=== PATIENT | male | born 1960 | race Hispanic/Latino ===

== ENCOUNTER 2024-08-23 09:48 | Inpatient (IN) | payer SELFPAY ==
[~2024-08-23] VITALS: Ht 170.2 cm; Wt 105.1 kg
[2024-08-23] VITALS (22 sets, daily range): BP systolic 77–124; BP diastolic 38–70; PULSE 67–115; RESP 16–30; TEMP 98.4–99.1
--- NOTE | 2024-08-23 10:10 | ERN ---
ED Note History of Present Illness Stated Complaint: URINARY RETENTION ONSET YESTER Chief Complaint: Urinary Retention Time Seen by MD: 10:01 Dictation: Patient is a 64-year-old male coming in today from local day and night clinic with complaints of urinary urgency frequency and inability to void except very small amounts onset yesterday. He denies fever chills nausea vomiting. Only primary care doctor is urgent care. He was able to void and give us a voided specimen when he got to the emergency room. We will follow up bladder scan for postvoid residual. HE STATES HE HAS HAD BODY ACHES FOR THE LAST 2-3 DAYS. ONLY PAST MEDICAL HISTORY IS HYPERTENSION AND HE TAKES ENALAPRIL 10 MG BUT HE HAS BEEN TAKING FOR A LONG TIME AND JUST GOES TO [facility] FOR REFILLS. Allergies: Coded Allergies: No Known Allergies (Unverified Allergy, Unknown, 08/23/24) Home Meds Reported Medications Enalapril Maleate (Enalapril Maleate) 10 Mg Tablet, 1 TAB PO DAILY for 30 Days, #30 TAB 0 Refills 08/23/24 Past Medical History Past Medical History: Hypertension Surgical History: None RN Note Reviewed/Agreed w/PFSH: Yes Review of System Dictation CONSTITUTIONAL: Negative except for HPI HEAD/FACE: Negative except for HPI EENT: Negative except for HPI RESPIRATORY: Negative except for HPI GASTROINTESTINAL/ABDOMINAL: Negative except for HPI GENITOURINARY: Negative except for HPI to be uterine have any our urinary urgency frequency with retention MUSCULOSKELETAL: Negative except for HPI INTEGUMENTARY: Negative except for HPI NEUROLOGICAL/PSYCH: Negative except for HPI HEMATOLOGIC/LYMPHATIC: Negative except for HPI All Systems Negative, Except as noted above. 13 point review of systems assessed and all negative except for above. No who is, lumbar number seen room Initial Vital Sign VS Vital Signs Date Time Temp Pulse Resp B/P (MAP) Pulse Ox O2 Delivery O2 Flow Rate FiO2 08/23/24 09:53 98.4 106 18 140/78 98 Room Air 0 08/23/24 13:22 21 Physical Exam Dictation Vital Signs reviewed General Appearance: Alert, oriented x 3, moderate acute distress, well developed, nourished. Head and Face: non-traumatic. Eyes: PERRL, pink conjunctivas, eyelid no trauma, anterior chamber with arcus senilis. Ears: Pinnas intact and no signs of trauma or erythema ear canals clear and no discharge TM no erythema Nose: No discharge, no bleeding. Oropharynx: Mouth normal, tongue pink, pharynx clear,no erythema, tonsils no exudates, no abscesses noted, mucous membrane moist Neck: Supple, non-tender, no thyromegaly, no masses, no JVD, no bruits Breast:Deferred Chest:No tenderness, no crepitus, no paradoxical movement, no retractions Lungs:Clear, well-ventilated, symmetric, no rales, no wheezing, no rhonchi, no stridor, good breath sounds bilaterally Heart: Regular rate, regular rhythm, no murmur, no gallops Vascular: no peripheral edema, Abdomen: Soft, positive bowel sounds, nondistended, no guarding, nontender, no rebound, no masses no hepatomegaly, no splenomegaly, no Roland's sign, no hernias. Rectal: Deferred Genital: Bladder distended two fingerbreadths above symphysis pubis. Tender to palpation Neurological: Normal speech, motor function intact, sensory function intact Musculoskeletal: Neck nontender, full range of motion, back nontender, full range of motion, Extremities: nontender, full range of motion Skin: Color pink, dry, no turgor, no rash, no lacerations, no abrasions, no contusions. Lymphatic: Deferred Results (Laboratory/Radiology) Laboratory/Radiology Laboratory Tests Test 08/23/24 10:16 08/23/24 11:10 08/23/24 13:16 08/23/24 14:31 White Blood Count 29.5 K/uL (4.8-10.8) H Red Blood Count 4.54 MIL/uL (4.50-6.20) Hemoglobin 15.2 g/dL (14.0-18.0) Hematocrit 43.2 % (42-54) Mean Corpuscular Volume 95.2 fL (79-99) Mean Corpuscular Hemoglobin 33.5 pg (27.0-33.0) H Mean Corpuscular Hemoglobin Concent 35.2 g/dL (32.0-36.0) Red Cell Distribution Width 12.7 % (11.0-15.5) Platelet Count 154 K/uL (130-400) Mean Platelet Volume 10.1 fL (7.5-10.5) Immature Granulocyte % (Auto) 1.7 % (0-1) H Neutrophils (%) (Auto) 86.4 % (40.0-77.0) H Lymphocytes (%) (Auto) 4.7 % (21.0-51.0) L Monocytes (%) (Auto) 6.7 % (3.0-13.0) Eosinophils (%) (Auto) 0.1 % (0.0-8.0) Basophils (%) (Auto) 0.4 % (0.0-5.0) Neutrophils # (Auto) 25.5 K/uL (1.8-7.7) H Lymphocytes # (Auto) 1.4 K/uL (1.0-4.8) Monocytes # (Auto) 2.0 K/uL (0.1-1.0) H Eosinophils # (Auto) 0.04 K/uL (0.00-0.70) Basophils # (Auto) 0.11 K/uL (0.00-0.20) Absolute Immature Granulocyte (auto 0.50 K/uL (0-1) Nucleated Red Blood Cells 0.0 % (0.0-0.19) White Cell Morphology Comment See comments Urine Color LIGHT-ORANGE (YELLOW) Urine Appearance CLOUDY (CLEAR) H Urine pH 5.5 (5.0-8.0) Urine Specific Brogan 1.026 (1.001-1.031) Urine Protein 100 mg/dL (NEGATIVE) H Urine Glucose (UA) NEGATIVE mg/dL (NEGATIVE) Urine Ketones 10 mg/dL (NEGATIVE) H Urine Occult Blood MODERATE (NEGATIVE) H Urine Nitrate NEGATIVE (NEGATIVE) Urine Bilirubin NEGATIVE mg/dL (NEGATIVE) Urine Urobilinogen 0.2 mg/dL (0.2-1.0) Urine Leukocyte Esterase 500 Zuleima/uL (NEGATIVE) H Urine RBC 11-25 /HPF (0-1) H Urine WBC TNTC /HPF (0-1) H Urine Squamous Epithelial Cells RARE /HPF (0-2) Urine Bacteria RARE /HPF (None Seen) Sodium Level 136 mmol/L (136-145) Potassium Level 4.1 mmol/L (3.5-5.1) Chloride Level 99 mmol/L (101-111) L Carbon Dioxide Level 27 mmol/L (21-32) Blood Urea Nitrogen 14 mg/dL (7-18) Creatinine 1.3 mg/dL (0.5-1.3) Glomerular Filtration Rate Calc 61 mL/min (>90) Random Glucose 122 mg/dL (70-105) H Hemoglobin A1c 5.1 % (4.0-6.0) Estimated Average Glucose (eAG) 100 mg/dL (70-126) Total Calcium 8.6 mg/dL (8.5-10.1) C-Reactive Protein, Quantitative 170.70 mg/L (0.5-3.0) H Procalcitonin 2.37 ng/mL (0.05-0.5) H Thyroid Stimulating Hormone (TSH) 0.74 uIU/mL (0.36-3.74) Lactic Acid Level 2.3 mmol/L (0.8-2.5) 2.6 mmol/L (0.8-2.5) H SARS-CoV-2 Antigen (Rapid) PRESUMPTIVE NEGATIVE MPARISON: None FINDINGS: ABDOMEN: Heart size is normal. Visible lung bases are clear. The liver is normal in size and smooth in contour without lesions or biliary duct dilation. Diffuse low attenuation of the liver parenchyma suggests fatty change. The spleen is normal in size without lesions. The gallbladder appears normal. The pancreas appears normal without pancreatic duct dilation. The adrenal glands appear normal. 1 cm simple right renal cyst. Left kidney appears normal. Cortical nephrograms are symmetric and normal in appearance bilaterally. No evidence for intra-abdominal free air or organized fluid collection. No retrocrural, intraabdominal, or retroperitoneal lymphadenopathy identified. No aortic aneurysmal dilation or dissection identified. PELVIS: No evidence for free air or organized pelvic fluid collection. No significant pelvic adenopathy detected. Visualized small and large bowel loops appear unremarkable. Terminal ileum appears normal. The appendix appears normal. Urinary bladder wall thickening and surrounding inflammatory fat stranding. Prostate gland transverse dimension measures up to 7.3 cm. Visible osseous structures are intact. IMPRESSION: 1. Cystitis. 2. Enlarged prostate gland. 3. Hepatic steatosis. Labs Reviewed?: Yes ED Course ED Course Orders Procedure Category Date Status Time Bladder Scan CPOE 08/23/24 Transmitted 10:05 Cbc With Differential LAB 08/23/24 Complete 10:05 Basic Metabolic Panel LAB 08/23/24 Complete 10:05 Urinalysis Profile LAB 08/23/24 Complete 10:05 Blood Cult MELISSA 08/23/24 In Process 10:36 Lactic Acid LAB 08/23/24 Complete 10:36 0.9%Nacl 1000ml (Ns PHA 08/23/24 Complete 1000ml) 11:00 Ceftriaxone 2gm Vial PHA 08/23/24 Complete (Rocephin 2gm Inj) 11:00 Chest 1vw RAD 08/23/24 Resulted 10:45 Covid19 (Sars Antigen LAB 08/23/24 Complete Rapid) 10:45 Ct Abdomen/Pelvis CT 08/23/24 Resulted W/Contrast 10:54 Iohexol (Omnipaque) PHA 08/23/24 Complete 11:04 Ketorolac PHA 08/23/24 Complete Tromethamine 30mg/Ml 11:30 0.9%Nacl 1000ml (Ns PHA 08/23/24 Complete 1000ml) 11:30 Culture Urine MELISSA 08/23/24 In Process 11:30 Edm Admit Bridge Order ADM 08/23/24 Transmitted 12:53 Vital Signs(Adult CPOE 08/23/24 Transmitted Hospitalist) 13:02 Nurse To Enter Home CPOE 08/23/24 Transmitted Medication 13:02 Admit Orders ADM 08/23/24 Transmitted 13:02 Telemetry Monitoring CPOE 08/23/24 Transmitted 13:02 Heart Healthy Diet DIET 08/23/24 Transmitted Lunch Enoxaparin Sodium 30 PHA 08/24/24 In Process Mg/0.3 Ml (Lovenox) 09:00 Famotidine 20mg Vial PHA 08/23/24 In Process (Pepcid 20mg Vial) 21:00 Acetaminophen 500mg PHA 08/23/24 In Process Tab (Tylenol 500mg T 13:30 Zosyn 3.375gm+Ns 50ml PHA 08/23/24 Complete (Zosyn 3.375gm+Ns 14:00 0.9%Nacl 50ml (Ns PHA 08/23/24 Complete 50ml) 14:00 0.9%Nacl 1000ml (Ns PHA 08/23/24 In Process 1000ml) 13:30 Procalcitonin LAB 08/23/24 Complete 13:02 Crp Quantitative LAB 08/23/24 Complete 13:02 Thyroid Stimulating LAB 08/23/24 Complete Hormone 13:02 Hemoglobin A1c LAB 08/23/24 Complete 13:02 Urology Consult CONPHYSVC 08/23/24 Transmitted 13:02 Tamsulosin Hcl PHA 08/23/24 In Process (Flomax) 13:30 Acetaminophen 500mg PHA 08/23/24 Complete Tab (Tylenol 500mg T 13:30 *Nursing CPOE 08/23/24 Transmitted Communication: 13:49 Lactic Acid (Removed) LAB 08/23/24 Complete 14:18 0.9% Nacl 500ml PHA 08/23/24 In Process Iv.Soln (Ns 500ml 15:30 Lactic Acid LAB 08/23/24 In Process 18:00 Transfer To: CPOE 08/23/24 Transmitted 17:04 Norepinephrin 4mg/Ns PHA 08/23/24 In Process 250ml (Levophed 4mg 17:30 Critcal Care Consult CONPHYSVC 08/23/24 Transmitted 17:04 Meropenem (Merrem) PHA 08/23/24 In Process 17:30 Compound Iv Misc PHA 08/23/24 In Process (Compound Iv Misc) 17:30 Current Medications Medications (Trade) Dose Ordered Sig/Cathie Route PRN Reason Start Time Stop Time Status Last Admin Dose Admin Ceftriaxone Sodium (Rocephin 2gm Inj) 2 gm ONCE ONCE IVPB 08/23/24 11:00 08/23/24 11:01 DC 08/23/24 11:08 Iohexol (Omnipaque) 75 ml STK-MED ONCE IV 08/23/24 11:04 08/23/24 11:04 DC Ketorolac Tromethamine (toRADol) 30 mg ONCE ONCE IVP 08/23/24 11:30 08/23/24 11:31 DC 08/23/24 11:45 Sodium Chloride 1,000 ml @ 0 mls/hr ONCE ONCE IV 08/23/24 11:00 08/23/24 11:01 DC 08/23/24 11:08 Sodium Chloride 3,129 ml @ 1,043 mls/hr ONCE ONCE IV 08/23/24 11:30 08/23/24 14:29 DC 08/23/24 11:43 Vital Signs Date Time Temp Pulse Resp B/P (MAP) Pulse Ox O2 Delivery O2 Flow Rate FiO2 08/23/24 17:00 98.6 67 20 88/52 100 Room Air 08/23/24 14:45 98.4 93 18 90/51 97 Room Air 08/23/24 14:22 99.1 101 20 122/62 96 Room Air* 0 21 08/23/24 13:36 102.0 08/23/24 13:22 101.1 108 20 165/76 96 Room Air* 0 21 08/23/24 09:53 98.4 106 18 140/78 98 Room Air 0 TEN 50, [place]IENT [place] [address] WBCS. WE WILL START SEPTIC WORKUP TO INCLUDE BLOOD CULTURES LACTIC ACID CHEST X-RAY WE WILL GIVE FLUIDS AND BROAD-SPECTRUM ANTIBIOTICS. ANTICIPATE ADMISSION TO THE HOSPITAL RULE OUT ETIOLOGY FOR INFECTION. , HEMODYNAMICALLY STABLE PATIENT WILL BE ADMITTED FOR ACUTE CYSTITIS WITH HEMATURIA, PROSTATE ENLARGEMENT AND LEUKOCYT SPOKE WITH , HOSPITALIST AND REVIEWED CT SCAN LABS URINE POSTVOID RESIDUAL AND INTERVENTIONS FOR SEPSIS TO INCLUDE NORMAL SALINE 30 PER KILOS IN2 G ROCEPHIN HE AGREED TO ADMIT PATIENT. Medical Decision Making MDM MDM: DIFFERENTIAL DIAGNOSIS: ACUTE URINARY RETENTION/CYSTITIS/PROSTATE ENLARGEMENT WITH RETENTION/ELECTROLYTE IMBALANCE/DEHYDRATION/APPENDICITIS/DIVERTICULITIS. RATIONALE: TESTS CONSIDERED AND ORDERED SECONDARY TO SHARED DECISION MAKING INCLUDE: LABS, AND RADIOLOGY PREVIOUS OUTSIDE RECORDS REVIEWED: OLD ER VISITS. REVIEWED RISK OF COMPLICATION AND/OR MORBIDITY OR MORTALITY OF PATIENT MANAGEMENT: MODERATE MEDICATIONS-PER MEDICATION RECONCILIATION SEE NURSE'S NOTES NEED FOR HOSPITALIZATION: PATIENT DOES MEET CRITERIA FOR HOSPITALIZATION. PATIENT WILL NEED CONTINUED FLUID RESUSCITATION MANAGEMENT OF HIS CYSTITIS AND POSSIBLE UROLOGY CONSULTATION BECAUSE OF BPH NEED FOR EMERGENCY MAJOR/MINOR SURGERY: NO THERE ARE NO SOCIAL CONCERNS WITH THIS PATIENT. PRESCRIPTION DRUG MANAGEMENT PRESCRIPTIONS WILL INCLUDE SYMPTOMATIC CARE PATIENT'S PRIOR EXTERNAL MEDICAL RECORDS FROM OTHER ER VISITS WERE REVIEWED BY ME INDICATED. PRIOR TESTING AND RESULTS FROM PREVIOUS VISITS WERE REVIEWED. PRIOR TESTS WERE TAKEN INTO ACCOUNT WITH MEDICAL DECISION MAKING AND RESOURCE UTILIZATION, INDEPENDENT HISTORIAN/HISTORIANS WERE USED TO OBTAIN COMPLETE MEDICAL HISTORY. I INDEPENDENTLY INTERPRETED THE TEST THAT WERE PERFORMED, RESULTS WERE REVIEWED BY ME AND CONSIDERED FINDINGS ON RADIOLOGY IF ORDERED. MEDICAL MANAGEMENT AND EXAMINATION INTERPRETATION DISCUSSIONS WERE HAD BY ME WITH OTHER QUALIFIED HEALTHCARE PROFESSIONALS INDICATED FOR THE PATIENT'S CARE. DX & DISP Disposition: Inpatient Decision to Admit Time: 12:34 Departure Impression: Primary Impression: Acute cystitis with hematuria Additional Impressions: Hypochloremia, Uncontrolled diabetes mellitus, BPH (benign prostatic hyperplasia), Sepsis Condition: Stable Time of Disposition: 12:34 I have reviewed the case, and I agree with, Diagnosis and Plan ATTESTATION BY PHYSICIAN I PERFORMED THE SUBSTANTIVE PORTION OF THE VISIT. I HAVE REVIEWED AND PERSONALLY MADE AND APPROVED THE MANAGEMENT PLAN THAT IS DOCUMENTED IN THE NOTE BY MYSELF FOR THE A PP. I ACKNOWLEDGED FOR RESPONSIBILITY FOR THE PATIENT'S MANAGEMENT PLAN. BUBBA HUNTER NP Aug 23, 2024 10:10 DENEEN GILLESPIE MD Aug 23, 2024 18:10
[2024-08-23 10:30] LABS: BASOPHILS # (AUTO) 0.11 K/uL (0.00-0.20); BASOPHILS % (AUTO) 0.4 % (0.0-5.0); EOSINOPHILS # (AUTO) 0.04 K/uL (0.00-0.70); EOSINOPHILS % (AUTO) 0.1 % (0.0-8.0); HEMATOCRIT 43.2 % (42-54); LYMPHOCYTES # (AUTO) 1.4 K/uL (1.0-4.8); LYMPHOCYTES % (AUTO) 4.7 % (21.0-51.0); MEAN CORPUSCULAR HEMOGLOBIN 33.5 pg (27.0-33.0); MEAN CORPUSCULAR HGB CONC 35.2 g/dL (32.0-36.0); MEAN CORPUSCULAR VOLUME 95.2 fL (79-99); MONOCYTES % (AUTO) 6.7 % (3.0-13.0); NEUTROPHILS # (AUTO) 25.5 K/uL (1.8-7.7); NEUTROPHILS % (AUTO) 86.4 % (40.0-77.0); PLATELET COUNT (AUTO) 154 K/uL (130-400); RED BLOOD CELL COUNT(AUTO) 4.54 MIL/uL (4.50-6.20); RED CELL DISTRIBUTION WIDTH 12.7 % (11.0-15.5); WHITE BLOOD COUNT (AUTO) 29.5 K/uL (4.8-10.8)
[2024-08-23 10:40] LABS: CREATININE 1.3 mg/dL (0.5-1.3); POTASSIUM 4.1 mmol/L (3.5-5.1)
[2024-08-23 11:01] LABS: APPEARANCE,URINE CLOUDY (CLEAR); BILIRUBIN,URINE NEGATIVE (NEGATIVE); COLOR,URINE LIGHT-ORANGE (YELLOW); GLUCOSE, URINE (UA) NEGATIVE (NEGATIVE); KETONES,URINE 10 mg/dL (NEGATIVE); LEUKOCYTE ESTERASE ,URINE 500 Leu/uL (NEGATIVE); NITRATE,URINE NEGATIVE (NEGATIVE); OCCULT BLOOD,URINE MODERATE (NEGATIVE); PH,URINE 5.5 (5.0-8.0); PROTEIN,URINE 100 mg/dL (NEGATIVE); UROBILINOGEN,URINE 0.2 mg/dL (0.2-1.0)
[2024-08-23] MEDS ORDERED: IOHEXOL-350 75 ML VIAL IV ONE (11:04)
[2024-08-23] MEDS: CEFTRIAXONE 2GM VIAL IVPB ONE (11:08)
[2024-08-23] MEDS: 0.9%NACL 1000ML 1,000 ML IV ONE (11:08)
[2024-08-23 11:30] LABS: ADD UA MICROSCOPIC YES
--- NOTE | 2024-08-23 11:32 | HMCIMG ---
CT ABDOMEN WITH CONTRAST. CT PELVIS WITH CONTRAST INDICATION: Suprapubic and left abdominal tenderness; urinary retention. TECHNIQUE: Routine transaxial images using 5 mm slice thickness were obtained after the intravenous infusion of 75 mL of Omnipaque 350 without adverse effects. Oral contrast was not administered. Rectal contrast was not administered. Coronal and sagittal reformatted images acquired for interpretation. CT was performed with one or more of the following dose reduction techniques: Automated exposure control, adjustment of the mA and/or kV according to patient size, or use of iterative reconstruction technique. COMPARISON: None FINDINGS: ABDOMEN: Heart size is normal. Visible lung bases are clear. The liver is normal in size and smooth in contour without lesions or biliary duct dilation. Diffuse low attenuation of the liver parenchyma suggests fatty change. The spleen is normal in size without lesions. The gallbladder appears normal. The pancreas appears normal without pancreatic duct dilation. The adrenal glands appear normal. 1 cm simple right renal cyst. Left kidney appears normal. Cortical nephrograms are symmetric and normal in appearance bilaterally. No evidence for intra-abdominal free air or organized fluid collection. No retrocrural, intraabdominal, or retroperitoneal lymphadenopathy identified. No aortic aneurysmal dilation or dissection identified. PELVIS: No evidence for free air or organized pelvic fluid collection. No significant pelvic adenopathy detected. Visualized small and large bowel loops appear unremarkable. Terminal ileum appears normal. The appendix appears normal. Urinary bladder wall thickening and surrounding inflammatory fat stranding. Prostate gland transverse dimension measures up to 7.3 cm. Visible osseous structures are intact. IMPRESSION: 1. Cystitis. 2. Enlarged prostate gland. 3. Hepatic steatosis.
[2024-08-23 11:33] LABS: BACTERIA,URINE RARE /HPF (None Seen); MUCUS,URINE FEW LPF (None Seen); SQUAMOUS EPITHELIAL CELL,UR RARE /HPF (0-2); WBC,URINE TNTC /HPF (0-1)
[2024-08-23] MEDS: 0.9%NACL 1000ML 3,129 ML IV ONE (11:43)
[2024-08-23] MEDS: ketOROlac 30MG VIAL (30MG/ML) IVP ONE (11:45)
--- NOTE | 2024-08-23 13:02 | NUR ---
DR ARMENDARIZ HOSPITALIST AT BEDSIDE
--- NOTE | 2024-08-23 13:09 | HMCIMG ---
PORTABLE CHEST RADIOGRAPH INDICATION: SOB/COUGH COMPARISON: None FINDINGS: Heart size is normal. The pulmonary vascularity and bernard appear normal. No abnormal pulmonary parenchymal opacity or consolidation identified. No significant pleural effusion noted. No pneumothorax detected. IMPRESSION: No radiographic evidence for any acute cardiopulmonary process.
[2024-08-23] MEDS: tamSULOsin HCL 0.4 MG CAP.ER.24H PO SCH (13:35)
[2024-08-23] MEDS: 0.9%NACL 1000ML 1,000 ML IV SCH (13:35)
[2024-08-23] MEDS: ZOSYN 3.375GM +NS 50ML IVPB SCH (13:36)
[2024-08-23] MEDS: acetaMINOPHEN 500 MG TABLET PO ONE (13:36)
[2024-08-23 13:38] LABS: HEMOGLOBIN A1C 5.1 % (4.0-6.0)
--- NOTE | 2024-08-23 13:49 | HP ---
[facility] HISTORY AND PHYSICAL Date of Service: Aug 23, 2024 Time of Service: 13:49 HISTORY OF PRESENT ILLNESS: DATE OF SERVICE: 08/23/2024 This is a 64-year-old male with past medical history of hypertension who presented to the hospital secondary to fever, increased urinary injury urgency. Patient yesterday was noted to have fevers at home. He was also complaining of pain in the left and right lower quadrant. He felt nauseated without any episodes of vomiting at home. Patient was having increased urinary urgency but felt he was unable to urinate. He went to [place] and was given prescription for antibiotics which he took yesterday. noted that patient was feeling generally weak and was unable to work. Patient denies any dysuria, hematuria but feels he is unable to void. He states his appetite has not changed and he has been drinking and eating food at home. He denies any chest pain, abdominal pain, shortness of breath, nausea, vomiting, changes in his bowel movement. Denied any constipation, diarrhea, melena, hematochezia, hematemesis. The ED were notable for white count of 29.5, hemoglobin was 15.2, platelet count was 154 K, sodium was 136, potassium was 4.1, creatinine was 1.3, blood glucose was one [address] abdomen pelvis which showed cystitis, prostatomegaly and hepatic steatosis REVIEW OF SYSTEMS CONSTITUTIONAL: Positive for fever, chills, malaise NEUROLOGICAL: Denies headache, amaurosis fugax, motor weakness, sensory deficit, vertigo/spinning sensation, gait abnormalities, or tremors. ENT: No hearing loss, otalgia, otorrhea, rhinitis, rhinorrhea, hoarseness, or sore throat. CARDIOVASCULAR: Denies any exertional angina, dyspnea on exertion, orthopnea, paroxysmal nocturnal dyspnea, palpitations, life-threatening arrhythmias, claudication. PULMONARY: Denies any shortness of breath, cough, phlegm/sputum, hemoptysis, pleuritic chest pain. GASTROINTESTINAL: Denies any type of dysphagia to either liquids or solids. Denies nausea, vomiting, pyrosis, early satiety, abdominal pain, diarrhea, constipation, or changes in stool consistency or caliber. Denies coffee-ground emesis, hematemesis, hematochezia, or melanotic stools. GENITOURINARY: Positive for increased urinary frequency. Denied any hematuria ENDOCRINOLOGIC: Denies polyuria, polydipsia, polyphagia or heat/cold intolerances. HEMATOLOGIC: Denies thrombophilia/previous clots, or coagulopathy/bleeding disorders. ONCOLOGIC: Denies personal history of malignancy. DERMATOLOGIC: Denies rashes or pruritus. PSYCHIATRIC: Denies any suicidal or homicidal ideation. Denies hallucinations. PAST MEDICAL HISTORY: Hypertension PAST SURGICAL HISTORY: No significant surgical history PAST SOCIAL HISTORY: Denied smoking, alcohol, drug use FAMILY HISTORY: Denied any pertinent family history Coded Allergies: No Known Allergies (Unverified Allergy, Unknown, 08/23/24) PHYSICAL EXAM GENERAL APPEARANCE: The patient is awake, alert, and oriented, in no acute cardiopulmonary distress. NEUROLOGICAL: Cranial nerves II-XII grossly intact. Motor is 5/5 in bilateral upper and lower extremities proximal to distal. No sensory deficits. HEENT: Face is symmetric. Pupils are equal and reactive. Extraocular movements are intact. NECK: Supple. No JVD. No thyromegaly. No submental, submandibular, pre- /postauricular, occipital or supraclavicular lymphadenopathy. CHEST: Normal chest expansion. No Telemetry. LUNGS: Absence of any rales, rhonchi or any wheezing. CARDIOVASCULAR: Regular. S1 and S2 normal. No appreciable rubs, murmurs or gallops. ABDOMEN: Soft, nontender, and nondistended. There is no rebound, voluntary guarding, or rigidity. : Deferred. No Hanley. EXTREMITIES: Non-edematous and not cyanotic. No clubbing. Good capillary refill. SKIN: No skin breakdown. Vital Sign (Last 24 Hours) 08/23/24 08/23/24 13:22 13:36 Temp 102.0 Pulse 108 Resp 20 B/P (MAP) 165/76 Pulse Ox 96 O2 Delivery Room Air* O2 Flow Rate 0 FiO2 21 LABS: Laboratory: Test 08/23/24 13:16 08/23/24 11:10 08/23/24 10:16 Range/Units SARS-CoV-2 Antigen (Rapid) PRESUMPTIVE NEGATIVE NEGATIVE Lactic Acid Level 2.3 0.8-2.5 mmol/L White Blood Count 29.5 H 4.8-10.8 K/uL Red Blood Count 4.54 4.50-6.20 MIL/uL Hemoglobin 15.2 14.0-18.0 g/dL Hematocrit 43.2 42-54 % Mean Corpuscular Volume 95.2 79-99 fL Mean Corpuscular Hemoglobin 33.5 H 27.0-33.0 pg Mean Corpuscular Hemoglobin Concent 35.2 32.0-36.0 g/dL Red Cell Distribution Width 12.7 11.0-15.5 % Platelet Count 154 130-400 K/uL Mean Platelet Volume 10.1 7.5-10.5 fL Immature Granulocyte % (Auto) 1.7 H 0-1 % Neutrophils (%) (Auto) 86.4 H 40.0-77.0 % Lymphocytes (%) (Auto) 4.7 L 21.0-51.0 % Monocytes (%) (Auto) 6.7 3.0-13.0 % Eosinophils (%) (Auto) 0.1 0.0-8.0 % Basophils (%) (Auto) 0.4 0.0-5.0 % Neutrophils # (Auto) 25.5 H 1.8-7.7 K/uL Lymphocytes # (Auto) 1.4 1.0-4.8 K/uL Monocytes # (Auto) 2.0 H 0.1-1.0 K/uL Eosinophils # (Auto) 0.04 0.00-0.70 K/uL Basophils # (Auto) 0.11 0.00-0.20 K/uL Absolute Immature Granulocyte (auto 0.50 0-1 K/uL Nucleated Red Blood Cells 0.0 0.0-0.19 % White Cell Morphology Comment See comments Urine Color LIGHT-ORANGE YELLOW Urine Appearance CLOUDY H CLEAR Urine pH 5.5 5.0-8.0 Urine Specific Streeter 1.026 1.001-1.031 Urine Protein 100 H NEGATIVE mg/dL Urine Glucose (UA) NEGATIVE NEGATIVE mg/dL Urine Ketones 10 H NEGATIVE mg/dL Urine Occult Blood MODERATE H NEGATIVE Urine Nitrate NEGATIVE NEGATIVE Urine Bilirubin NEGATIVE NEGATIVE mg/dL Urine Urobilinogen 0.2 0.2-1.0 mg/dL Urine Leukocyte Esterase 500 H NEGATIVE Zuleima/uL Urine RBC 11-25 H 0-1 /HPF Urine WBC TNTC H 0-1 /HPF Urine Squamous Epithelial Cells RARE 0-2 /HPF Urine Bacteria RARE None Seen /HPF Sodium Level 136 136-145 mmol/L Potassium Level 4.1 3.5-5.1 mmol/L Chloride Level 99 L 101-111 mmol/L Carbon Dioxide Level 27 21-32 mmol/L Blood Urea Nitrogen 14 7-18 mg/dL Creatinine 1.3 0.5-1.3 mg/dL Glomerular Filtration Rate Calc 61 >90 mL/min Random Glucose 122 H 70-105 mg/dL Hemoglobin A1c 5.1 4.0-6.0 % Estimated Average Glucose (eAG) 100 70-126 mg/dL Total Calcium 8.6 8.5-10.1 mg/dL Current Medications Medications (Trade) Dose Ordered Sig/Cathie Route PRN Reason Start Time Stop Time Status Last Admin Dose Admin Acetaminophen (TYLenol 500MG TAB) 500 mg Q6H PRN PO MILD PAIN (1-3) 08/23/24 13:30 09/22/24 13:29 Enoxaparin Sodium (Lovenox) 30 mg DAILY SQ 08/24/24 09:00 09/23/24 08:59 Famotidine (Pepcid 20mg Vial) 20 mg BID IV 08/23/24 21:00 09/22/24 20:59 Piperacillin Sod/ Tazobactam Sod (Zosyn 3.375gm+NS 50ml) 3.375 gm Q8H IVPB 08/23/24 14:00 09/02/24 13:59 08/23/24 13:36 3.375 GM Sodium Chloride 1,000 ml @ 100 mls/hr Q10H IV 08/23/24 13:30 09/22/24 13:29 08/23/24 13:35 100 MLS/HR Sodium Chloride (NS 50ml) 50 ml AD IV 08/23/24 14:00 08/23/24 13:07 DC Tamsulosin HCl (FloMAX) 0.4 mg DAILY PO 08/23/24 13:30 09/22/24 13:29 08/23/24 13:35 0.4 MG DIAGNOSTICS / RADIOLOGY: [ ] ASSESSMENT: Sepsis secondary to complicated UTI POA Complicated UTI with cystitis Prostatomegaly Hypertension Obesity BMI 37 point PLAN: - patient to be admitted to be admitted to medical-surgical unit with telemetry -in reference to complicated UTI. Patient will be started on IV Zosyn. We will also perform bladder scan q.6 hours to check for postvoid residuals. We will request consultation with Urology. Follow up on urine culture - In reference to prostatomegaly. patient to be started on Flomax. Patient to be given gentle hydration with normal saline -obtain home medications which will be reconciled once available -further orders per hospitalization course. Advanced Care Planning Which of the following were discussed: Hospice care: Yes __ No _x_ Therapeutic options: Yes __ No __ Advance directives: Yes __ No __ Other discussions: Patient is full code Discussed with who?: patient (Patient, family or surrogates) Voluntary nature of this service was explained to the patient? Yes _x_ No __ Amount of time spent: 25 minutes KASSI Ace MD, MD Aug 23, 2024 13:49
[2024-08-23] MEDS ORDERED: 0.9%NACL 50ML IV SCH (14:00)
[2024-08-23 14:12] LABS: THYROID STIMULATING HORMONE 0.74 uIU/mL (0.36-3.74)
[2024-08-23] MEDS ORDERED: ENAL-89 PO (14:34)
--- NOTE | 2024-08-23 14:41 | NUR ---
DR DAY PAGED FOR CONSULT, PENDING CALL BACK
--- NOTE | 2024-08-23 14:50 | NUR ---
PT ARRIVED TO FLOOR. PT DENIES ANY PAIN. BED AT LOWEST POSITION, CALL LIGHT WITH IN REACH. PERSONAL ITEM AT REACH. AT BEDSIDE. TELE BOX #[id number] SINUS TACH 101, BP 88/60. DR ARMENDARIZ AT BEDSIDE. MADE AWARE.
[2024-08-23] MEDS: 0.9% NACL 500ML IV.SOLN 500 ML IV SCH (15:20)
--- NOTE | 2024-08-23 16:15 | NUR ---
UROLOGY CONSULT PER CAROLINE ARTHUR HAS BEEN AWARE.
[2024-08-23] MEDS ORDERED: COMPOUND IV MISC 1 EACH IVSOLN MISC PRN (17:30)
[2024-08-23] MEDS ORDERED: NOREPINEPHRIN 4MG/NS 250ML 250 ML IV SCH (17:30)
--- NOTE | 2024-08-23 18:38 | CONS ---
[facility] CONSULTATION NOTE Date Patient Seen: Aug 23, 2024 Time of Visit: 18:38 Supervising Physician: Dr. Bradley Reason for Consultation: "Septic shock", critical care management Primary Care Physician: Attending: [facility] Outpatient Specialists: Inpatient Consults: [facility], critical care team PROBLEM LIST: Sepsis with septic shock, unresponsive to fluid resuscitation, in need of pressors Acute complicated cystitis, POA Severe leukocytosis Lactic acidosis MARIAM, GFR 52 from yesterday GFR 61 Hyperglycemia Prostatomegaly History of hypertension, currently hypotensive Obesity BMI 37 point HPI: Mr. Pike is a 64-year-old male with past medical history of hypertension who presented to ed for evauation of fever, left and right lower quadrant, and in creased urinary injury urgency. He felt nauseated without any episodes of vomiting at home. Patient was having increased urinary urgency but felt he was unable to urinate. He went to [place] and was given prescription for antibiotics which he took day before arrival to ED. noted that patient was feeling generally weak and was unable to work. Patient denied any dysuria, hematuria. He states his appetite has not changed and he has been drinking and eating food at home. He denied any chest pain, abdominal pain, shortness of breath, nausea, vomiting, changes in his bowel movement. Denied any constipation, diarrhea, melena, hematochezia, hematemesis. The ED were notable for white count of 29.5, hemoglobin was 15.2, platelet count was 154 K, sodium was 136, potassium was 4.1, creatinine was 1.3, blood glucose was one [address] abdomen pelvis which showed cystitis, prostatomegaly and hepatic steatosis. On evening of 08/23/2024 patient became hypotensive and [facility] team consulted [facility] team for critical care management. Patient was seen and assessed by me in room 320. Patient was pending ICU bed for hypotension. Blood pressure was 83/47, map 59. Patient reported nausea and feeling weak. 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 Patient was transferred to ICU. I spoke to patient and family member. I informed them of the hypotension, plan to start Levophed, and transferred to ICU. Informed them of labs and diagnostics also. They verbalized understanding and are in agreement with the plan. Plan and assessment are listed below. PAST MEDICAL HX: see above PAST SURGICAL HX: noncontributory SOCIAL HISTORY: No tobacco, ETOH, or illicit drug use Coded Allergies: No Known Allergies (Unverified Allergy, Unknown, 08/23/24) REVIEW OF SYSTEMS: 12 point ROS reviewed with patient. Pertinent positives mentioned above. Otherwise negative. PHYSICAL EXAM: GENERAL: alert, weak, awake oriented x 3 HEENT: EOMI, Sclera non icteric, moist mucosa NECK: Supple, no JVD, trachea midline LUNGS: Clear breath sounds bilaterally. No wheezes HEART: Regular rate and rhythm. Normal S1 and S2, without murmurs ABD: Abdomen soft, nontender. Bowel sounds present EXT: No clubbing cyanosis or edema NEURO: Alert and oriented to person, follows commands Vital Signs (last 8hr) Date Time Temp Pulse Resp B/P (MAP) Pulse Ox O2 Delivery O2 Flow Rate FiO2 08/23/24 17:00 98.6 67 20 88/52 100 Room Air 08/23/24 14:45 98.4 93 18 90/51 97 Room Air 08/23/24 14:22 99.1 101 20 122/62 96 Room Air* 0 21 08/23/24 13:36 102.0 08/23/24 13:22 101.1 108 20 165/76 96 Room Air* 0 21 LABS: Hematology Labs: Test 08/23/24 10:16 Range/Units White Blood Count 29.5 H 4.8-10.8 K/uL Red Blood Count 4.54 4.50-6.20 MIL/uL Hemoglobin 15.2 14.0-18.0 g/dL Hematocrit 43.2 42-54 % Mean Corpuscular Volume 95.2 79-99 fL Mean Corpuscular Hemoglobin 33.5 H 27.0-33.0 pg Mean Corpuscular Hemoglobin Concent 35.2 32.0-36.0 g/dL Red Cell Distribution Width 12.7 11.0-15.5 % Platelet Count 154 130-400 K/uL Mean Platelet Volume 10.1 7.5-10.5 fL Immature Granulocyte % (Auto) 1.7 H 0-1 % Neutrophils (%) (Auto) 86.4 H 40.0-77.0 % Lymphocytes (%) (Auto) 4.7 L 21.0-51.0 % Monocytes (%) (Auto) 6.7 3.0-13.0 % Eosinophils (%) (Auto) 0.1 0.0-8.0 % Basophils (%) (Auto) 0.4 0.0-5.0 % Neutrophils # (Auto) 25.5 H 1.8-7.7 K/uL Lymphocytes # (Auto) 1.4 1.0-4.8 K/uL Monocytes # (Auto) 2.0 H 0.1-1.0 K/uL Eosinophils # (Auto) 0.04 0.00-0.70 K/uL Basophils # (Auto) 0.11 0.00-0.20 K/uL Absolute Immature Granulocyte (auto 0.50 0-1 K/uL Nucleated Red Blood Cells 0.0 0.0-0.19 % White Cell Morphology Comment See comments Chemistry Labs: Test 08/23/24 18:05 08/23/24 10:16 Range/Units Lactic Acid Level 2.4 0.8-2.5 mmol/L Sodium Level 136 136-145 mmol/L Potassium Level 4.1 3.5-5.1 mmol/L Chloride Level 99 L 101-111 mmol/L Carbon Dioxide Level 27 21-32 mmol/L Blood Urea Nitrogen 14 7-18 mg/dL Creatinine 1.3 0.5-1.3 mg/dL Glomerular Filtration Rate Calc 61 >90 mL/min Random Glucose 122 H 70-105 mg/dL Hemoglobin A1c 5.1 4.0-6.0 % Estimated Average Glucose (eAG) 100 70-126 mg/dL Total Calcium 8.6 8.5-10.1 mg/dL C-Reactive Protein, Quantitative 170.70 H 0.5-3.0 mg/L Procalcitonin 2.37 H 0.05-0.5 ng/mL Thyroid Stimulating Hormone (TSH) 0.74 0.36-3.74 uIU/mL DIAGNOSTICS / RADIOLOGY RESULTS: [ ] PLAN The patient was transferred from medical surgical with tele to ICU. Continue Zosyn IV. Antibiotic therapy tailored to culture results. Deescalate antibiotics when appropriate. Continue monitor for postvoid residuals. Attending doctor has consulted Urology, who reports no interventions tonight. Follow urine cultures, WBCs., blood cultures. Monitor for fevers. Continue Flomax. Fluid resuscitations administered for the hypotension/low map. Continue IV gentle hydration. Monitor renal and liver function. Monitor electrolytes and treat accordingly. DVT and GI prophylaxis. A.m. labs. NEURO: Minimize central acting medications as possible. Fall Precautions. Well lighted room through the day and minimize interruptions through the night to prevent acute delirium. PULMONARY: Supplemental 02 as needed Titrate Fio2 to keep Spo2 > or = 90% DuoNebs and CPT as needed IS hourly while awake for pulmonary hygiene Out of bed to chair as tolerated VAP Bundle CARDIOVASCULAR: Follow hemodynamics. Titrate vasopressor to keep MAP >65 or systolic blood pressure >95mmHg GI & NUTRITION: Continue nutritional support Aspirations precautions Prokinetic agents and laxatives as needed KIDNEYS & ELECTROLYTES: Strict monitoring of intake and output Daily weights Avoid nephrotoxic agents Monitor electrolytes and replace as needed Goal urine output of 30mL/hr or 0.5mL/kg/hr ENDOCRINE: Maintain blood glucose between 100-180 at all times. Insulin sliding scale for blood glucose management INFECTIOUS DISEASE: Trend temperature. Brown-culture if febrile. HEMATOLOGY & COAGULATION: Monitor H&H. Keep Hgb > 7 Transfuse 1 unit of PRBC for Hgb < 7 Transfuse 1 pack of platelets of platelets < 20, 000 Watch for any signs and symptoms of bleeding SKIN: Pressure ulcer prevention per facility protocol Rehab: PT/OT Code Status: Full Resuscitation Disposition: [ICU] Other: Total patient critical care time exceeds 40 minutes excluding all procedures. CARLOS MANUEL COBB Aug 23, 2024 18:38
[2024-08-23] MEDS: ondanSETRON 4MG INJ IVP PRN (18:49)
[2024-08-23] MEDS: miDODRine HCL 5 MG TABLET PO ONE (18:49)
--- NOTE | 2024-08-23 19:00 | NUR ---
TRANSFER TO ICU PT CONTINUE WITH HYPOTENSION. DR ARMENDARIZ MADE AWARE ORDERS GIVEN TO TRANSFER TO ICU RM 206. KEV FILLER SHAKER AT BEDSIDE.FAMILY AT BEDSIDE. NO FURTHER QUESTIONS FROM FAMILY.
[2024-08-23] MEDS: FAMOTIDINE 20MG VIAL IV SCH (20:41)
[2024-08-23] MEDS: MEROPENEM 1 GM in 0.9%NACL 100ML 100 ML IVPB SCH (22:44)
[2024-08-24] VITALS (47 sets, daily range): BP systolic 82–154; BP diastolic 29–85; PULSE 82–115; RESP 9–69; TEMP 97.8–99.7; O2SAT 96
--- NOTE | 2024-08-24 | NUR ---
BLADDER SCAN AT 0000, BLADDER SCAN SHOWED 86 ML FLUID IN THE BLADDER. PT STATED NO URGE TO VOID AT THIS TIME. LARGE VOID NOTED EARLIER IN SHIFT, UNABLE TO MEASURE D/T IT SPILLING ONTO THE BED. WILL CONT TO PERFORM BLADDER SCANS Q6H. Addendum: 08/24/24 at 0733 by ALYSHA COOK RN RN BLADDER AT 0600, SHOWED 91 MLS OF URINE IN THE BLADDER. PT CONT TO C/O DYSURIA, AND INABILITY TO EMPTY BLADDER WHEN ATTEMPTING TO VOID.
[2024-08-24 04:11] LABS: BASOPHILS # (AUTO) 0.08 K/uL (0.00-0.20); BASOPHILS % (AUTO) 0.3 % (0.0-5.0); EOSINOPHILS # (AUTO) 0.19 K/uL (0.00-0.70); EOSINOPHILS % (AUTO) 0.6 % (0.0-8.0); HEMATOCRIT 37.9 % (42-54); IMMATURE GRANULOCYTE ABSOLUTE 2.11 K/uL (0-1); LYMPHOCYTES # (AUTO) 0.9 K/uL (1.0-4.8); LYMPHOCYTES % (AUTO) 3.2 % (21.0-51.0); MEAN CORPUSCULAR HEMOGLOBIN 32.8 pg (27.0-33.0); MEAN CORPUSCULAR HGB CONC 34.3 g/dL (32.0-36.0); MEAN CORPUSCULAR VOLUME 95.7 fL (79-99); MONOCYTES # (AUTO) 1.1 K/uL (0.1-1.0); MONOCYTES % (AUTO) 3.7 % (3.0-13.0); NEUTROPHILS # (AUTO) 25.2 K/uL (1.8-7.7); NEUTROPHILS % (AUTO) 85.1 % (40.0-77.0); PLATELET COUNT (AUTO) 142 K/uL (130-400); RED BLOOD CELL COUNT(AUTO) 3.96 MIL/uL (4.50-6.20); RED CELL DISTRIBUTION WIDTH 12.8 % (11.0-15.5); WHITE BLOOD COUNT (AUTO) 29.6 K/uL (4.8-10.8)
[2024-08-24 04:21] LABS: CREATININE 1.5 mg/dL (0.5-1.3); POTASSIUM 3.6 mmol/L (3.5-5.1)
[2024-08-24] MEDS: acetaMINOPHEN 500 MG TABLET PO PRN (06:04)
[2024-08-24] MEDS: ENOXAPARIN SODIUM 30 MG/0.3 ML SQ SCH (08:20)
--- NOTE | 2024-08-24 11:25 | PN ---
[facility] PROGRESS NOTE Date of Service: Aug 24, 2024 Time of Service: 11:11 SUBJECTIVE: This is a 64-year-old male with past medical history of hypertension who presented to the hospital secondary to fever, increased urinary injury urgency. Patient yesterday was noted to have fevers at home. He was also complaining of pain in the left and right lower quadrant. He felt nauseated without any episodes of vomiting at home. Patient was having increased urinary urgency but felt he was unable to urinate. He went to [place] and was given prescription for antibiotics which he took yesterday. noted that patient was feeling generally weak and was unable to work. Patient denies any dysuria, hematuria but feels he is unable to void. He states his appetite has not changed and he has been drinking and eating food at home. He denies any chest pain, abdominal pain, shortness of breath, nausea, vomiting, changes in his bowel movement. Denied any constipation, diarrhea, melena, hematochezia, hematemesis. The ED were notable for white count of 29.5, hemoglobin was 15.2, platelet count was 154 K, sodium was 136, potassium was 4.1, creatinine was 1.3, blood glucose was one [address] abdomen pelvis which showed cystitis, prostatomegaly and hepatic steatosis 08/24/2024: Patient assessed at bedside. Patient is afebrile, alert and oriented x4. He is no longer on Levophed and is hemodynamically stable with BP of 111/71. Per nurse, the patient is still voiding in small amounts and has increased urgency. He is continued on Tamsulosin. Pending urology consult. Patient is currently on meropenem with WBC still elevated at 29.6, procalcitonin increased to 10.47 from 2.37, CRP increased to 250.90 from 170.70. BUN 17, Cr 1.5. Currently on LR. Pending infectious disease consult. Will continue to monitor patient and follow up with infectious disease, critical care, and urology recommendations. REVIEW OF SYSTEMS CONSTITUTIONAL: Positive for fever, chills, malaise NEUROLOGICAL: Denies headache, amaurosis fugax, motor weakness, sensory deficit, vertigo/spinning sensation, gait abnormalities, or tremors. ENT: No hearing loss, otalgia, otorrhea, rhinitis, rhinorrhea, hoarseness, or sore throat. CARDIOVASCULAR: Denies any exertional angina, dyspnea on exertion, orthopnea, paroxysmal nocturnal dyspnea, palpitations, life-threatening arrhythmias, claudication. PULMONARY: Denies any shortness of breath, cough, phlegm/sputum, hemoptysis, pleuritic chest pain. GASTROINTESTINAL: Denies any type of dysphagia to either liquids or solids. Denies nausea, vomiting, pyrosis, early satiety, abdominal pain, diarrhea, constipation, or changes in stool consistency or caliber. Denies coffee-ground emesis, hematemesis, hematochezia, or melanotic stools. GENITOURINARY: Positive for increased urinary frequency. Denied any hematuria ENDOCRINOLOGIC: Denies polyuria, polydipsia, polyphagia or heat/cold intolerances. HEMATOLOGIC: Denies thrombophilia/previous clots, or coagulopathy/bleeding disorders. ONCOLOGIC: Denies personal history of malignancy. DERMATOLOGIC: Denies rashes or pruritus. PSYCHIATRIC: Denies any suicidal or homicidal ideation. Denies hallucinations. PHYSICAL EXAM GENERAL APPEARANCE: The patient is awake, alert, and oriented, in no acute cardiopulmonary distress. NEUROLOGICAL: Cranial nerves II-XII grossly intact. Motor is 5/5 in bilateral upper and lower extremities proximal to distal. No sensory deficits. HEENT: Face is symmetric. Pupils are equal and reactive. Extraocular movements are intact. NECK: Supple. No JVD. No thyromegaly. No submental, submandibular, pre- /postauricular, occipital or supraclavicular lymphadenopathy. CHEST: Normal chest expansion. No Telemetry. LUNGS: Absence of any rales, rhonchi or any wheezing. CARDIOVASCULAR: Regular. S1 and S2 normal. No appreciable rubs, murmurs or gallops. ABDOMEN: Soft, nontender, and nondistended. There is no rebound, voluntary guarding, or rigidity. : Deferred. No [place]. EXTREMITIES: Non-edematous and not cyanotic. No clubbing. Good capillary refill. SKIN: No skin breakdown. Vital Signs (last 8hr) Date Time Temp Pulse Resp B/P (MAP) Pulse Ox O2 Delivery O2 Flow Rate FiO2 08/24/24 08:33 95 26 111/71 96 Room Air 08/24/24 08:18 96 22 115/64 96 Room Air 08/24/24 08:03 98 22 114/65 94 Room Air 08/24/24 07:51 97.9 08/24/24 07:50 99 20 103/64 96 Room Air 08/24/24 07:33 98 18 102/59 92 Room Air 08/24/24 07:18 98 9 103/57 95 Room Air 08/24/24 07:03 103 35 100/59 95 Room Air 08/24/24 07:00 103 35 100/59 (73) 95 08/24/24 06:45 101 34 115/66 (82) 96 08/24/24 06:30 100 23 107/57 (74) 94 08/24/24 06:15 104 24 106/53 (70) 93 08/24/24 06:04 99.7 08/24/24 06:00 103 12 118/67 (84) 98 08/24/24 05:45 101 11 134/62 (86) 98 08/24/24 05:30 115 69 151/83 (105) 08/24/24 05:00 103 27 154/65 (94) 95 08/24/24 04:45 102 23 122/66 (84) 97 08/24/24 04:30 105 82/29 (46) 94 08/24/24 04:15 99 25 134/81 (98) 96 08/24/24 04:00 Room Air* 0 21 08/24/24 04:00 99.7 100 22 91/57 (68) 90 08/24/24 04:00 99.7 08/24/24 03:45 98 25 151/78 (102) 95 08/24/24 03:30 104 21 127/85 (99) 92 08/24/24 03:15 97 27 105/63 (77) 95 LABS: Laboratory: Test 08/24/24 03:42 08/23/24 21:47 08/23/24 20:33 08/23/24 13:16 Range/Units White Blood Count 29.6 H 4.8-10.8 K/uL Red Blood Count 3.96 L 4.50-6.20 MIL/uL Hemoglobin 13.0 L 14.0-18.0 g/dL Hematocrit 37.9 L 42-54 % Mean Corpuscular Volume 95.7 79-99 fL Mean Corpuscular Hemoglobin 32.8 27.0-33.0 pg Mean Corpuscular Hemoglobin Concent 34.3 32.0-36.0 g/dL Red Cell Distribution Width 12.8 11.0-15.5 % Platelet Count 142 130-400 K/uL Mean Platelet Volume 10.8 H 7.5-10.5 fL Immature Granulocyte % (Auto) 7.1 H 0-1 % Neutrophils (%) (Auto) 85.1 H 40.0-77.0 % Lymphocytes (%) (Auto) 3.2 L 21.0-51.0 % Monocytes (%) (Auto) 3.7 3.0-13.0 % Eosinophils (%) (Auto) 0.6 0.0-8.0 % Basophils (%) (Auto) 0.3 0.0-5.0 % Neutrophils # (Auto) 25.2 H 1.8-7.7 K/uL Lymphocytes # (Auto) 0.9 L 1.0-4.8 K/uL Monocytes # (Auto) 1.1 H 0.1-1.0 K/uL Eosinophils # (Auto) 0.19 0.00-0.70 K/uL Basophils # (Auto) 0.08 0.00-0.20 K/uL Absolute Immature Granulocyte (auto 2.11 H 0-1 K/uL Nucleated Red Blood Cells 0.0 0.0-0.19 % Sodium Level 139 136-145 mmol/L Potassium Level 3.6 3.5-5.1 mmol/L Chloride Level 104 101-111 mmol/L Carbon Dioxide Level 26 21-32 mmol/L Blood Urea Nitrogen 17 7-18 mg/dL Creatinine 1.5 H 0.5-1.3 mg/dL Glomerular Filtration Rate Calc 52 >90 mL/min Random Glucose 116 H 70-105 mg/dL Total Calcium 7.6 L 8.5-10.1 mg/dL C-Reactive Protein, Quantitative 250.90 H 0.5-3.0 mg/L Procalcitonin 10.47 H 0.05-0.5 ng/mL Lactic Acid Level 2.7 H 0.8-2.5 mmol/L Whole Blood Glucose 144 H 70-110 MG/DL SARS-CoV-2 Antigen (Rapid) PRESUMPTIVE NEGATIVE NEGATIVE Test 08/23/24 10:16 Range/Units White Cell Morphology Comment See comments Urine Color LIGHT-ORANGE YELLOW Urine Appearance CLOUDY H CLEAR Urine pH 5.5 5.0-8.0 Urine Specific [place] 1.026 1.001-1.031 Urine Protein 100 H NEGATIVE mg/dL Urine Glucose (UA) NEGATIVE NEGATIVE mg/dL Urine Ketones 10 H NEGATIVE mg/dL Urine Occult Blood MODERATE H NEGATIVE Urine Nitrate NEGATIVE NEGATIVE Urine Bilirubin NEGATIVE NEGATIVE mg/dL Urine Urobilinogen 0.2 0.2-1.0 mg/dL Urine Leukocyte Esterase 500 H NEGATIVE [place]uleima/uL Urine RBC 11-25 H 0-1 /HPF Urine WBC TNTC H 0-1 /HPF Urine Squamous Epithelial Cells RARE 0-2 /HPF Urine Bacteria RARE None Seen /HPF Hemoglobin A1c 5.1 4.0-6.0 % Estimated Average Glucose (eAG) 100 70-126 mg/dL Thyroid Stimulating Hormone (TSH) 0.74 0.36-3.74 uIU/mL Current Medications Medications (Trade) Dose Ordered Sig/Cathie Route PRN Reason Start Time Stop Time Status Last Admin Dose Admin Acetaminophen (TYLenol 500MG TAB) 500 mg Q6H PRN PO MILD PAIN (1-3) 08/23/24 13:30 09/22/24 13:29 08/24/24 06:04 500 MG Enoxaparin Sodium (Lovenox) 30 mg DAILY SQ 08/24/24 09:00 09/23/24 08:59 08/24/24 08:20 30 MG Famotidine (Pepcid 20mg Vial) 20 mg BID IV 08/23/24 21:00 09/22/24 20:59 08/24/24 08:19 20 MG Meropenem 1 gm/ Sodium Chloride 100 ml @ 33.333 mls/ hr Q8H IVPB 08/23/24 17:30 09/02/24 17:29 08/24/24 08:35 33.333 MLS/HR Norepinephrine 250 ml @ 39.122 mls/ hr PROTOCOL IV 08/23/24 17:30 09/22/24 17:29 Ondansetron HCl (zoFRAN 4MG INJ) 4 mg Q6H PRN IVP NAUSEA/VOMITING 08/23/24 19:00 09/22/24 18:59 08/23/24 18:49 4 MG Piperacillin Sod/ Tazobactam Sod (Zosyn 3.375gm+NS 50ml) 3.375 gm Q8H IVPB 08/23/24 14:00 08/23/24 17:16 DC 08/23/24 13:36 3.375 GM Sodium Chloride 500 ml @ 0 mls/hr Q0M IV 08/23/24 15:30 09/22/24 15:29 08/23/24 18:53 500 MLS/HR Sodium Chloride 1,000 ml @ 100 mls/hr Q10H IV 08/23/24 13:30 09/22/24 13:29 08/24/24 08:19 100 MLS/HR Sodium Chloride (NS 50ml) 50 ml AD IV 08/23/24 14:00 08/23/24 13:07 DC Tamsulosin HCl (FloMAX) 0.4 mg DAILY PO 08/23/24 13:30 09/22/24 13:29 08/24/24 08:20 0.4 MG DIAGNOSTICS / RADIOLOGY: PATIENT: PEPE BARRETT MR#: [id number] : 1960 SEX: M AGE: 64 LOCATION: [facility] ORDER 46 STATUS: [facility] REPORT#: [id number] SERVICE 104 REASON: SOB/COUGH ORDERING PHYSICIAN: BUBBA HUNTER NP PROCEDURE: CXR1VW - CHEST 1VW PORTABLE CHEST RADIOGRAPH INDICATION: SOB/COUGH COMPARISON: None FINDINGS: Heart size is normal. The pulmonary vascularity and bernard appear normal. No abnormal pulmonary parenchymal opacity or consolidation identified. No significant pleural effusion noted. No pneumothorax detected. IMPRESSION: No radiographic evidence for any acute cardiopulmonary process. DICTATED BY: NAVDEEP DUVALL MD DATE: 08/23/241306 ELECTRONICALLY SIGNED BY: NAVDEEP DUVALL MD DATE: 08/23/24 130 ASSESSMENT: Septic shock, resolved Hypotension requiring vasopressor (Levophed) resolved, POA Sepsis secondary to complicated UTI POA Complicated UTI with cystitis Prostatomegaly Hypertension Obesity BMI 37 point PLAN: - patient to be admitted to be admitted to medical-surgical unit with telemetry -in reference to complicated UTI. Patient will be started on IV Zosyn. We will also perform bladder scan q.6 hours to check for postvoid residuals. We will request consultation with Urology. Follow up on urine culture - In reference to prostatomegaly. patient to be continued on Flomax. Patient to be given gentle hydration with normal saline -further orders per hospitalization course. ATTESTATION BY PHYSICIAN I have seen and examined the patient. I reviewed the documentation, medical decision making, and treatment plan as noted by the resident provider above. I agree with the findings and plan of care. Phoenix Guillory MD, NEHA MD Aug 24, 2024 11:25
--- NOTE | 2024-08-24 11:35 | NUR ---
Voiding in small amounts, 80-150 cc at a time Bladder scan done after pt had just voided twice, 100 & 50 cc respectively. Bladder scan volume of 45cc/hr LR bolus started as ordered. Waiting to give report to [facility] for transfer to [facility]
[2024-08-24] MEDS: LACTATED RINGERS 1000ML 1,983 ML IV ONE (12:56)
--- NOTE | 2024-08-24 17:00 | NUR ---
MARIA D Nurse Assessment Met with patient at bedside. Pt stated lives with and feels safe in his home environment. Pt states he is independent and drives. He has no provider service and no devices use for mobility. pharmacy-([facility]). DCP-home Addendum: 08/24/24 at 1707 by LEVI ARREGUIN RN CM Amended: Links added.
--- NOTE | 2024-08-24 17:36 | PN ---
[facility] PROGRESS NOTE Date Patient Seen: Aug 24, 2024 Time of Visit: 10:33 Supervising Physician: Dr. Bradley Primary Care Physician: Attending: [facility] Outpatient Specialists: Inpatient Consults: BIS, critical care team PROBLEM LIST: Sepsis with septic shock Acute complicated cystitis, Gram negative edgar- POA Severe leukocytosis Lactic acidosis Acute renal failure 2/2 ATN in the setting of sepsis on CKD GFR 52 from yesterday GFR 61 Hyperglycemia Prostatomegaly History of hypertension, currently hypotensive Obesity BMI 37 point INTERVAL HISTORY: 08/24 patient is awake alert and oriented x3 no acute event overnight. Patient has been weaned off the Levophed this morning at five retina blood pressure is maintaining. Patient is still has tachycardia 102, we went ahead and give him boluses increase with IV fluids. In the meantime he is WBC is slightly up to 29.6 from 29/5. Creatinine is up to 1.5 from 1.3 procalcitonin is up to 10 from 2. We will need to continue to trend this and continue current antibiotic with meropenem. We will add Gram-positive coverage while waiting for cultures to come back. ID has been consulted. In the meantime from Pulmonary critical Care standpoint patient is stable, we can downgrade him to medical-surgical. We will be available as needed. Thank you for allowing us to participate in the care of this patient. REVIEW OF SYSTEMS: 12 point ROS reviewed with patient. Pertinent positives mentioned above. Otherwise negative. PHYSICAL EXAM: GENERAL: alert, weak, awake oriented x 3 HEENT: EOMI, Sclera non icteric, moist mucosa NECK: Supple, no JVD, trachea midline LUNGS: Clear breath sounds bilaterally. No wheezes HEART: Regular rate and rhythm. Normal S1 and S2, without murmurs ABD: Abdomen soft, nontender. Bowel sounds present EXT: No clubbing cyanosis or edema NEURO: Alert and oriented to person, follows commands Vital Signs (last 8hr) Date Time Temp Pulse Resp B/P (MAP) Pulse Ox O2 Delivery O2 Flow Rate FiO2 08/24/24 16:12 98.4 102 22 122/70 96 Room Air 08/24/24 14:15 98.4 108 20 123/63 97 Room Air 08/24/24 12:18 Room Air* 0 21 08/24/24 12:03 104 20 136/71 97 Room Air 08/24/24 11:48 97.9 105 26 120/59 98 Room Air 08/24/24 11:33 82 12 119/71 97 Room Air 08/24/24 11:18 102 12 139/70 93 08/24/24 11:03 98 12 113/65 98 Room Air 08/24/24 10:48 97 24 114/68 96 08/24/24 10:33 93 24 114/65 98 Room Air 08/24/24 10:20 95 23 113/62 97 LABS: Hematology Labs: Test 08/24/24 03:42 08/23/24 10:16 Range/Units White Blood Count 29.6 H 4.8-10.8 K/uL Red Blood Count 3.96 L 4.50-6.20 MIL/uL Hemoglobin 13.0 L 14.0-18.0 g/dL Hematocrit 37.9 L 42-54 % Mean Corpuscular Volume 95.7 79-99 fL Mean Corpuscular Hemoglobin 32.8 27.0-33.0 pg Mean Corpuscular Hemoglobin Concent 34.3 32.0-36.0 g/dL Red Cell Distribution Width 12.8 11.0-15.5 % Platelet Count 142 130-400 K/uL Mean Platelet Volume 10.8 H 7.5-10.5 fL Immature Granulocyte % (Auto) 7.1 H 0-1 % Neutrophils (%) (Auto) 85.1 H 40.0-77.0 % Lymphocytes (%) (Auto) 3.2 L 21.0-51.0 % Monocytes (%) (Auto) 3.7 3.0-13.0 % Eosinophils (%) (Auto) 0.6 0.0-8.0 % Basophils (%) (Auto) 0.3 0.0-5.0 % Neutrophils # (Auto) 25.2 H 1.8-7.7 K/uL Lymphocytes # (Auto) 0.9 L 1.0-4.8 K/uL Monocytes # (Auto) 1.1 H 0.1-1.0 K/uL Eosinophils # (Auto) 0.19 0.00-0.70 K/uL Basophils # (Auto) 0.08 0.00-0.20 K/uL Absolute Immature Granulocyte (auto 2.11 H 0-1 K/uL Nucleated Red Blood Cells 0.0 0.0-0.19 % White Cell Morphology Comment See comments Chemistry Labs: Test 08/24/24 03:42 08/23/24 21:47 08/23/24 20:33 08/23/24 10:16 Range/Units Sodium Level 139 136-145 mmol/L Potassium Level 3.6 3.5-5.1 mmol/L Chloride Level 104 101-111 mmol/L Carbon Dioxide Level 26 21-32 mmol/L Blood Urea Nitrogen 17 7-18 mg/dL Creatinine 1.5 H 0.5-1.3 mg/dL Glomerular Filtration Rate Calc 52 >90 mL/min Random Glucose 116 H 70-105 mg/dL Total Calcium 7.6 L 8.5-10.1 mg/dL C-Reactive Protein, Quantitative 250.90 H 0.5-3.0 mg/L Procalcitonin 10.47 H 0.05-0.5 ng/mL Lactic Acid Level 2.7 H 0.8-2.5 mmol/L Whole Blood Glucose 144 H 70-110 MG/DL Hemoglobin A1c 5.1 4.0-6.0 % Estimated Average Glucose (eAG) 100 70-126 mg/dL Thyroid Stimulating Hormone (TSH) 0.74 0.36-3.74 uIU/mL DIAGNOSTICS / RADIOLOGY RESULTS: [ ] PLAN Give fluid bolus Continue with IV maintenance Midodrine okay Continue current antibiotic Added Gram-positive coverage Continue to follow cultures DVT and PUD prophylaxis Downgraded to medical-surgical. NEURO: Minimize central acting medications as possible. Fall Precautions. Well lighted room through the day and minimize interruptions through the night to prevent acute delirium. PULMONARY: Supplemental 02 as needed Titrate Fio2 to keep Spo2 > or = 90% DuoNebs and CPT as needed IS hourly while awake for pulmonary hygiene Out of bed to chair as tolerated VAP Bundle CARDIOVASCULAR: Follow hemodynamics. Titrate vasopressor to keep MAP >65 or systolic blood pressure >95mmHg GI & NUTRITION: Continue nutritional support Aspirations precautions Prokinetic agents and laxatives as needed KIDNEYS & ELECTROLYTES: Strict monitoring of intake and output Daily weights Avoid nephrotoxic agents Monitor electrolytes and replace as needed Goal urine output of 30mL/hr or 0.5mL/kg/hr ENDOCRINE: Maintain blood glucose between 100-180 at all times. Insulin sliding scale for blood glucose management INFECTIOUS DISEASE: Trend temperature. Brown-culture if febrile. HEMATOLOGY & COAGULATION: Monitor H&H. Keep Hgb > 7 Transfuse 1 unit of PRBC for Hgb < 7 Transfuse 1 pack of platelets of platelets < 20, 000 Watch for any signs and symptoms of bleeding SKIN: Pressure ulcer prevention per facility protocol Rehab: PT/OT Code Status: Full Resuscitation Disposition: Medical-surgical Other: Total patient critical care time exceeds 35 minutes excluding all procedures. SALLIE CONRAD [facility] Aug 24, 2024 17:36
[2024-08-24] MEDS ORDERED: DOXYCYCLINE 100MG+NS 250ML 250 ML IV SCH (18:00)
[2024-08-24] MEDS: DOXYCYCLINE 100MG+NS 250ML 250 ML IV SCH (21:17)
[2024-08-24] MEDS: finaSTERide 5 MG TABLET PO SCH (21:20)
[2024-08-25] VITALS (9 sets, daily range): BP systolic 111–156; BP diastolic 66–86; PULSE 85–100; RESP 16–20; TEMP 98.3–102.2; O2SAT 96
--- NOTE | 2024-08-25 00:29 | CONS ---
REQUESTING PHYSICIAN: Lopez Cedeno MD REASON FOR CONSULTATION: Urinary tract infection with retention. HISTORY OF PRESENT ILLNESS: This is a 64-year-old male, presents to the hospital with a 2-day history of voiding in small amounts with urinary frequency, unclear what his postvoid residual is or was, nonetheless noted to have a white count of 29,000, admitted to the hospital for evaluation and management. Consultation of Urology requested. The patient encountered lying in bed comfortably. White count is now down to 20,000 over 24 hours after receiving IV Merrem and doxycycline and no more dysuria. Feels improved. No prior history of urinary tract infection or urinary retention. ALLERGIES: None. CURRENT MEDICATIONS: Include IV meropenem as well as doxycycline. Additionally, the patient is on acetaminophen, famotidine. He did receive Zosyn IV also in the emergency room. PAST MEDICAL HISTORY: Hypertension. PAST SURGICAL HISTORY: Negative. FAMILY HISTORY: Negative for kidney stones. 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 Does not smoke or drink. REVIEW OF SYSTEMS: He has no shortness of breath or chest pain. His appetite is good. No nausea, no vomiting, no constipation or diarrhea. No headaches or dizziness or nosebleeds. No joint pain, joint swelling, limitation of movement, night sweats, fever, chills, or skin rash. PHYSICAL EXAMINATION: GENERAL: This is a well-developed male, in no distress. VITAL SIGNS: Blood pressure 140/80 with a pulse of 98, temperature 98. NECK: Has no adenopathy or supraclavicular masses palpable. LUNGS: Martinez are clear to auscultation. HEART: Sounds are best heard in the fifth intercostal space. ABDOMEN: Obese, soft, nontender. BACK: No CVA tenderness. EXTERNAL GENITALIA: Phallus not circumcised. Foreskin lesions. Testicles are descended bilaterally, nontender, no masses. RECTAL: Reveals a normal anus and empty rectum. He has a 40 gram benign feeling prostate, no nodules. Lateral sulci clear as well as median rhaphe. LABORATORY DATA: White count is now down to 20,000, hematocrit is 43, platelet count is 154. Urinalysis showed cloudy urine; pH 5.5, nitrites were negative. Some red cells and too numerous to count white cells in the urine, rare bacteria. Sodium is 136, potassium is 4.1. BUN and creatinine are 14/1.3. IMAGING STUDIES: Reviewed today include CT scan of abdomen and pelvis, this shows urinary wall thickening surrounded by inflammatory fat stranding consistent with cystitis and enlarged prostate. No hydronephrosis. A 1 cm simple right renal cyst. ASSESSMENT: Urinary tract infection with cystitis. RECOMMENDATIONS: * The patient to continue with culture-specific antibiotics. * Add Proscar to his regimen. * Once his urinary tract infection is resolved, PSA. * Post-residual volume assessment while in the hospital. Finally, the patient's concerns have been answered at this time. His postvoid residual volume is less than 100. There will be no need to place Hanley catheter. Thank you for the opportunity of providing consultation on your patient. TID: [id number] RECEIPT: [id number]
[2024-08-25 04:40] LABS: BASOPHILS # (AUTO) 0.05 K/uL (0.00-0.20); BASOPHILS % (AUTO) 0.2 % (0.0-5.0); EOSINOPHILS # (AUTO) 0.03 K/uL (0.00-0.70); EOSINOPHILS % (AUTO) 0.1 % (0.0-8.0); IMMATURE GRANULOCYTE ABSOLUTE 0.23 K/uL (0-1); LYMPHOCYTES # (AUTO) 0.8 K/uL (1.0-4.8); LYMPHOCYTES % (AUTO) 3.3 % (21.0-51.0); MEAN CORPUSCULAR HEMOGLOBIN 33.2 pg (27.0-33.0); MEAN CORPUSCULAR HGB CONC 35.4 g/dL (32.0-36.0); MEAN CORPUSCULAR VOLUME 93.7 fL (79-99); MONOCYTES # (AUTO) 0.7 K/uL (0.1-1.0); NEUTROPHILS % (AUTO) 92.4 % (40.0-77.0); PLATELET COUNT (AUTO) 126 K/uL (130-400); RED BLOOD CELL COUNT(AUTO) 3.95 MIL/uL (4.50-6.20); RED CELL DISTRIBUTION WIDTH 12.5 % (11.0-15.5); WHITE BLOOD COUNT (AUTO) 22.8 K/uL (4.8-10.8)
[2024-08-25 04:44] LABS: CREATININE 1.2 mg/dL (0.5-1.3); MAGNESIUM 1.5 mg/dL (1.80-2.40); POTASSIUM 3.1 mmol/L (3.5-5.1)
--- NOTE | 2024-08-25 13:35 | PN ---
INFECTIOUS DISEASE PROGRESS NOTE Date of Service: Aug 25, 2024 SUBJECTIVE: This is a 64-year-old male patient with past medical history of hypertension and obesity who presented to the emergency room with chief complaint of urgency and difficulty urinating. Patient reported experiencing fever but no chills at home. Also experienced episodes of nausea and vomiting. On admission patient was septic and hypotensive and was admitted to the ICU for vasopressor support. A urine culture collected on admission came back positive for ESBL E coli and patient has been started on meropenem 1 g IV every [address] of the abdomen/pelvis showed an enlarged prostate gland and cystitis. Urology has been consulted and patient has been started on Flomax and Proscar. On examination today in room 320 patient is now voiding clear yellow urine. Patient continues experiencing fever and blood culture has been repeated . We will monitor patie nt closely. REVIEW OF SYSTEMS CONSTITUTIONAL: Denies fever, chills, or fatigue. HEAD/FACE: No signs of trauma. EENT: Denies eye pain, blurred vision, double vision, or light sensitivity. RESPIRATORY: Denies shortness of breath, cough, wheezing. CARDIOVASCULAR: Denies chest pain, palpitation, syncope. GASTROINTESTINAL/ABDOMINAL: Denies constipation, diarrhea, nausea or vomiting. Lower abdominal pain POA. GENITOURINARY: Denies hematuria. Urgency and difficulty urinating, POA. MUSCULOSKELETAL: Denies joint pain, tenderness, or trauma. INTEGUMENTARY: Denies rash or itchiness. NEUROLOGICAL/PSYCH: Denies anxiety, depression, heat or cold intolerance. PHYSICAL EXAM EYES: Anicteric. Pupils equal and reactive. HENT: No oral thrush seen, moist Oral mucosa. NECK: Supple, no JVD or thyromegaly. LUNGS: Good air entry. No rales, no rhonchi. CARDIOVASCULAR: S1, S2 regular. No murmur heard. ABDOMEN: Soft, non tender, bowel sounds present, no organomegaly. CENTRAL NERVOUS SYSTEM: Awake, alert, oriented x 3. SKIN: No rashes, no swelling. LYMPHATICS: No peripheral lymphadenopathy. MUSCULOSKELETAL: No joint swelling, erythema or tenderness. EXTREMITIES: No cyanosis or clubbing. BACK: No deformity, no pressure ulcer. GENITOURINARY: No hematuria. Urgency resolving. Vital Sign (Last 12 Hours) 08/25/24 08/25/24 08/25/24 08/25/24 04:00 08:00 12:00 12:06 Temp 99.1 100.6 102.2 102.0 Pulse 96 99 95 Resp 20 19 19 B/P (MAP) 153/84 156/86 Pulse Ox 96 96 96 O2 Delivery Nasal Cannula Room Air Room Air Intake & Output (last 24hrs) 08/24/24 08/24/24 08/25/24 15:00 23:00 07:00 Intake Total 1400.0 ml Output Total 300 ml 625 ml 200 ml Balance 1100.0 ml -625 ml -200 ml LABS: Laboratory: Test 08/25/24 04:15 08/24/24 03:42 08/23/24 21:47 08/23/24 20:33 Range/Units White Blood Count 22.8 H 4.8-10.8 K/uL Red Blood Count 3.95 L 4.50-6.20 MIL/uL Hemoglobin 13.1 L 14.0-18.0 g/dL Hematocrit 37.0 L 42-54 % Mean Corpuscular Volume 93.7 79-99 fL Mean Corpuscular Hemoglobin 33.2 H 27.0-33.0 pg Mean Corpuscular Hemoglobin Concent 35.4 32.0-36.0 g/dL Red Cell Distribution Width 12.5 11.0-15.5 % Platelet Count 126 L 130-400 K/uL Mean Platelet Volume 11.0 H 7.5-10.5 fL Immature Granulocyte % (Auto) 1.0 0-1 % Neutrophils (%) (Auto) 92.4 H 40.0-77.0 % Lymphocytes (%) (Auto) 3.3 L 21.0-51.0 % Monocytes (%) (Auto) 3.0 3.0-13.0 % Eosinophils (%) (Auto) 0.1 0.0-8.0 % Basophils (%) (Auto) 0.2 0.0-5.0 % Neutrophils # (Auto) 21.0 H 1.8-7.7 K/uL Lymphocytes # (Auto) 0.8 L 1.0-4.8 K/uL Monocytes # (Auto) 0.7 0.1-1.0 K/uL Eosinophils # (Auto) 0.03 0.00-0.70 K/uL Basophils # (Auto) 0.05 0.00-0.20 K/uL Absolute Immature Granulocyte (auto 0.23 0-1 K/uL Nucleated Red Blood Cells 0.0 0.0-0.19 % Sodium Level 137 136-145 mmol/L Potassium Level 3.1 L 3.5-5.1 mmol/L Chloride Level 102 101-111 mmol/L Carbon Dioxide Level 28 21-32 mmol/L Blood Urea Nitrogen 13 7-18 mg/dL Creatinine 1.2 0.5-1.3 mg/dL Glomerular Filtration Rate Calc 68 >90 mL/min Random Glucose 109 H 70-105 mg/dL Total Calcium 7.9 L 8.5-10.1 mg/dL Magnesium Level 1.50 L 1.80-2.40 mg/dL Procalcitonin 7.05 H 0.05-0.5 ng/mL C-Reactive Protein, Quantitative 250.90 H 0.5-3.0 mg/L Lactic Acid Level 2.7 H 0.8-2.5 mmol/L Whole Blood Glucose 144 H 70-110 MG/DL Test 08/23/24 13:16 Range/Units SARS-CoV-2 Antigen (Rapid) PRESUMPTIVE NEGATIVE NEGATIVE DIAGNOSTICS / RADIOLOGY: PATIENT: PEPE BARRETT MR#: [id number] : 1960 SEX: M AGE: 64 LOCATION: [facility] ORDER [id number] STATUS: [facility] REPORT#: [id number] SERVICE 1054 REASON: SUPRAPUBIC AND LEFT QUADRANT PAIN TENDERNESS 29.5 WBCS ORDERING PHYSICIAN: BUBBA HUNTER NP PROCEDURE: ABD PEL W - CT ABDOMEN/PELVIS W/CONTRAST CT ABDOMEN WITH CONTRAST. CT PELVIS WITH CONTRAST INDICATION: Suprapubic and left abdominal tenderness; urinary retention. TECHNIQUE: Routine transaxial images using 5 mm slice thickness were obtained after the intravenous infusion of 75 mL of Omnipaque 350 without adverse effects. Oral contrast was not administered. Rectal contrast was not administered. Coronal and sagittal reformatted images acquired for interpretation. CT was performed with one or more of the following dose reduction techniques: Automated exposure control, adjustment of the mA and/or kV according to patient size, or use of iterative reconstruction technique. COMPARISON: None FINDINGS: ABDOMEN: Heart size is normal. Visible lung bases are clear. The liver is normal in size and smooth in contour without lesions or biliary duct dilation. Diffuse low attenuation of the liver parenchyma suggests fatty change. The spleen is normal in size without lesions. The gallbladder appears normal. The pancreas appears normal without pancreatic duct dilation. The adrenal glands appear normal. 1 cm simple right renal cyst. Left kidney appears normal. Cortical nephrograms are symmetric and normal in appearance bilaterally. No evidence for intra-abdominal free air or organized fluid collection. No retrocrural, intraabdominal, or retroperitoneal lymphadenopathy identified. No aortic aneurysmal dilation or dissection identified. PELVIS: No evidence for free air or organized pelvic fluid collection. No significant pelvic adenopathy detected. Visualized small and large bowel loops appear unremarkable. Terminal ileum appears normal. The appendix appears normal. Urinary bladder wall thickening and surrounding inflammatory fat stranding. Prostate gland transverse dimension measures up to 7.3 cm. Visible osseous structures are intact. IMPRESSION: 1. Cystitis. 2. Enlarged prostate gland. 3. Hepatic steatosis. DICTATED BY: NAVDEEP DUVALL MD DATE: 08/23/24 1128 ELECTRONICALLY SIGNED BY: NAVDEEP DUVALL MD DATE: 08/23/24 1132 ASSESSMENT: Urinary tract infection with ESBL, E coli. Infection with multidrug resistant organism. Sepsis. Leukocytosis. Urinary retention, POA. Hypertension. PLAN: Continue meropenem. Blood cultures were repeated, will follow up on results Continue Flomax. Continue pain management. Urology has evaluated patient. Continue GI prophylaxis. Thank you for allowing ID to participate in the care of this patient. This case was reviewed and discussed with my supervising physician and the above assessment and plan was formulated and agreed upon. ATTESTATION BY PHYSICIAN I have seen and examined the patient. I reviewed the documentation, medical decision making, and treatment plan as noted by the mid-level provider above. I agree with the findings and plan of care. AHMET MENDEZ MD, [facility] Aug 25, 2024 13:35
--- NOTE | 2024-08-25 15:12 | PN ---
[facility] PROGRESS NOTE Date of Service: Aug 25, 2024 Time of Service: 15:03 SUBJECTIVE: This is a 64-year-old male with past medical history of hypertension who presented to the hospital secondary to fever, increased urinary injury urgency. Patient yesterday was noted to have fevers at home. He was also complaining of pain in the left and right lower quadrant. He felt nauseated without any episodes of vomiting at home. Patient was having increased urinary urgency but felt he was unable to urinate. He went to [facility] and was given prescription for antibiotics which he took yesterday. noted that patient was feeling generally weak and was unable to work. Patient denies any dysuria, hematuria but feels he is unable to void. He states his appetite has not changed and he has been drinking and eating food at home. He denies any chest pain, abdominal pain, shortness of breath, nausea, vomiting, changes in his bowel movement. Denied any constipation, diarrhea, melena, hematochezia, hematemesis. The ED were notable for white count of 29.5, hemoglobin was 15.2, platelet count was 154 K, sodium was 136, potassium was 4.1, creatinine was 1.3, blood glucose was one [address] abdomen pelvis which showed cystitis, prostatomegaly and hepatic steatosis 08/24/2024: Patient assessed at bedside. Patient is afebrile, alert and oriented x4. He is no longer on Levophed and is hemodynamically stable with BP of 111/71. Per nurse, the patient is still voiding in small amounts and has increased urgency. He is continued on Tamsulosin. Pending urology consult. Patient is currently on meropenem with WBC still elevated at 29.6, procalcitonin increased to 10.47 from 2.37, CRP increased to 250.90 from 170.70. BUN 17, Cr 1.5. Currently on LR. Pending infectious disease consult. Will continue to monitor patient and follow up with infectious disease, critical care, and urology recommendations. 08/25/2024: Patient assessed at bedside. Patient continues to saturate well on room air and is no acute distress. He has however been febrile with a T-max of 102.2. WBC has improved from 29.6 to 22.8. Pro-calcitonin improved from 10.47 to 7.05. Cr improved from 1.5 to 1.2. Continued on NS 100ml/hr. Patient is able to void on his own and per urology no Hanley is needed if post-residual volume is less than 100ml. PSA will be checked once UTI resolves. Patient started of Finasteride 5mg and continued on Flomax 0.4mg. Will continue patient on doxy and meropenem. Urine positive for E.Coli. Magnesium and potassium protocols started. Will continue to monitor electrolytes and trend temperature and WBC's. Will re-evaluate tomorrow and see if patient is ok to discharge. REVIEW OF SYSTEMS CONSTITUTIONAL: Positive for fever, chills, malaise NEUROLOGICAL: Denies headache, amaurosis fugax, motor weakness, sensory deficit, vertigo/spinning sensation, gait abnormalities, or tremors. ENT: No hearing loss, otalgia, otorrhea, rhinitis, rhinorrhea, hoarseness, or sore throat. CARDIOVASCULAR: Denies any exertional angina, dyspnea on exertion, orthopnea, paroxysmal nocturnal dyspnea, palpitations, life-threatening arrhythmias, claudication. PULMONARY: Denies any shortness of breath, cough, phlegm/sputum, hemoptysis, pleuritic chest pain. GASTROINTESTINAL: Denies any type of dysphagia to either liquids or solids. Denies nausea, vomiting, pyrosis, early satiety, abdominal pain, diarrhea, constipation, or changes in stool consistency or caliber. Denies coffee-ground emesis, hematemesis, hematochezia, or melanotic stools. GENITOURINARY: Positive for increased urinary frequency. Denied any hematuria ENDOCRINOLOGIC: Denies polyuria, polydipsia, polyphagia or heat/cold intolerances. HEMATOLOGIC: Denies thrombophilia/previous clots, or coagulopathy/bleeding disorders. ONCOLOGIC: Denies personal history of malignancy. DERMATOLOGIC: Denies rashes or pruritus. PSYCHIATRIC: Denies any suicidal or homicidal ideation. Denies hallucinations. PHYSICAL EXAM GENERAL APPEARANCE: The patient is awake, alert, and oriented, in no acute cardiopulmonary distress. NEUROLOGICAL: Cranial nerves II-XII grossly intact. Motor is 5/5 in bilateral upper and lower extremities proximal to distal. No sensory deficits. HEENT: Face is symmetric. Pupils are equal and reactive. Extraocular movements are intact. NECK: Supple. No JVD. No thyromegaly. No submental, submandibular, pre- /postauricular, occipital or supraclavicular lymphadenopathy. CHEST: Normal chest expansion. No Telemetry. LUNGS: Absence of any rales, rhonchi or any wheezing. CARDIOVASCULAR: Regular. S1 and S2 normal. No appreciable rubs, murmurs or gallops. ABDOMEN: Soft, nontender, and nondistended. There is no rebound, voluntary guarding, or rigidity. : Deferred. No Hanley. EXTREMITIES: Non-edematous and not cyanotic. No clubbing. Good capillary refill. SKIN: No skin breakdown. Vital Signs (last 8hr) Date Time Temp Pulse Resp B/P (MAP) Pulse Ox O2 Delivery O2 Flow Rate FiO2 08/25/24 12:06 102.0 08/25/24 12:00 102.2 95 19 156/86 96 Room Air 08/25/24 08:00 100.6 99 19 153/84 96 Room Air LABS: Laboratory: Test 08/25/24 04:15 08/24/24 03:42 08/23/24 21:47 08/23/24 20:33 Range/Units White Blood Count 22.8 H 4.8-10.8 K/uL Red Blood Count 3.95 L 4.50-6.20 MIL/uL Hemoglobin 13.1 L 14.0-18.0 g/dL Hematocrit 37.0 L 42-54 % Mean Corpuscular Volume 93.7 79-99 fL Mean Corpuscular Hemoglobin 33.2 H 27.0-33.0 pg Mean Corpuscular Hemoglobin Concent 35.4 32.0-36.0 g/dL Red Cell Distribution Width 12.5 11.0-15.5 % Platelet Count 126 L 130-400 K/uL Mean Platelet Volume 11.0 H 7.5-10.5 fL Immature Granulocyte % (Auto) 1.0 0-1 % Neutrophils (%) (Auto) 92.4 H 40.0-77.0 % Lymphocytes (%) (Auto) 3.3 L 21.0-51.0 % Monocytes (%) (Auto) 3.0 3.0-13.0 % Eosinophils (%) (Auto) 0.1 0.0-8.0 % Basophils (%) (Auto) 0.2 0.0-5.0 % Neutrophils # (Auto) 21.0 H 1.8-7.7 K/uL Lymphocytes # (Auto) 0.8 L 1.0-4.8 K/uL Monocytes # (Auto) 0.7 0.1-1.0 K/uL Eosinophils # (Auto) 0.03 0.00-0.70 K/uL Basophils # (Auto) 0.05 0.00-0.20 K/uL Absolute Immature Granulocyte (auto 0.23 0-1 K/uL Nucleated Red Blood Cells 0.0 0.0-0.19 % Sodium Level 137 136-145 mmol/L Potassium Level 3.1 L 3.5-5.1 mmol/L Chloride Level 102 101-111 mmol/L Carbon Dioxide Level 28 21-32 mmol/L Blood Urea Nitrogen 13 7-18 mg/dL Creatinine 1.2 0.5-1.3 mg/dL Glomerular Filtration Rate Calc 68 >90 mL/min Random Glucose 109 H 70-105 mg/dL Total Calcium 7.9 L 8.5-10.1 mg/dL Magnesium Level 1.50 L 1.80-2.40 mg/dL Procalcitonin 7.05 H 0.05-0.5 ng/mL C-Reactive Protein, Quantitative 250.90 H 0.5-3.0 mg/L Lactic Acid Level 2.7 H 0.8-2.5 mmol/L Whole Blood Glucose 144 H 70-110 MG/DL Current Medications Medications (Trade) Dose Ordered Sig/Cathie Route PRN Reason Start Time Stop Time Status Last Admin Dose Admin Acetaminophen (TYLenol 500MG TAB) 500 mg Q6H PRN PO MILD PAIN (1-3) 08/23/24 13:30 09/22/24 13:29 08/25/24 12:06 500 MG Doxycycline Hyclate 250 ml @ 125 mls/hr Q12H IV 08/24/24 18:00 08/24/24 18:44 DC Doxycycline Hyclate 250 ml @ 125 mls/hr Q12H IV 08/24/24 21:00 09/03/24 20:59 08/25/24 08:57 125 MLS/HR Enoxaparin Sodium (Lovenox) 30 mg DAILY SQ 08/24/24 09:00 09/23/24 08:59 08/25/24 08:59 30 MG Famotidine (Pepcid 20mg Vial) 20 mg BID IV 08/23/24 21:00 09/22/24 20:59 08/25/24 08:58 20 MG Finasteride (PROscar 5 MG TAB) 5 mg HS PO 08/24/24 21:00 09/23/24 20:59 08/24/24 21:20 5 MG Meropenem 1 gm/ Sodium Chloride 100 ml @ 33.333 mls/ hr Q8H IVPB 08/23/24 17:30 09/02/24 17:29 08/25/24 11:10 33.333 MLS/HR Norepinephrine 250 ml @ 39.122 mls/ hr PROTOCOL IV 08/23/24 17:30 08/24/24 12:25 DC Ondansetron HCl (zoFRAN 4MG INJ) 4 mg Q6H PRN IVP NAUSEA/VOMITING 08/23/24 19:00 09/22/24 18:59 08/24/24 12:57 4 MG Piperacillin Sod/ Tazobactam Sod (Zosyn 3.375gm+NS 50ml) 3.375 gm Q8H IVPB 08/23/24 14:00 08/23/24 17:16 DC 08/23/24 13:36 3.375 GM Sodium Chloride 500 ml @ 0 mls/hr Q0M IV 08/23/24 15:30 09/22/24 15:29 08/23/24 18:53 500 MLS/HR Sodium Chloride 1,000 ml @ 100 mls/hr Q10H IV 08/23/24 13:30 09/22/24 13:29 08/24/24 19:50 100 MLS/HR Sodium Chloride (NS 50ml) 50 ml AD IV 08/23/24 14:00 08/23/24 13:07 DC Tamsulosin HCl (FloMAX) 0.4 mg DAILY PO 08/23/24 13:30 09/22/24 13:29 08/25/24 08:58 0.4 MG DIAGNOSTICS / RADIOLOGY: PATIENT: PEPE BARRETT MR#: [id number] : 1960 SEX: M AGE: 64 LOCATION: [facility] ORDER [id number] STATUS: REG REPORT#: [id number] SERVICE 1054 REASON: SUPRAPUBIC AND LEFT QUADRANT PAIN TENDERNESS 29.5 WBCS ORDERING PHYSICIAN: BUBBA HUNTER NP PROCEDURE: ABD PEL W - CT ABDOMEN/PELVIS W/CONTRAST CT ABDOMEN WITH CONTRAST. CT PELVIS WITH CONTRAST INDICATION: Suprapubic and left abdominal tenderness; urinary retention. TECHNIQUE: Routine transaxial images using 5 mm slice thickness were obtained after the intravenous infusion of 75 mL of Omnipaque 350 without adverse effects. Oral contrast was not administered. Rectal contrast was not administered. Coronal and sagittal reformatted images acquired for interpretation. CT was performed with one or more of the following dose reduction techniques: Automated exposure control, adjustment of the mA and/or kV according to patient size, or use of iterative reconstruction technique. COMPARISON: None FINDINGS: ABDOMEN: Heart size is normal. Visible lung bases are clear. The liver is normal in size and smooth in contour without lesions or biliary duct dilation. Diffuse low attenuation of the liver parenchyma suggests fatty change. The spleen is normal in size without lesions. The gallbladder appears normal. The pancreas appears normal without pancreatic duct dilation. The adrenal glands appear normal. 1 cm simple right renal cyst. Left kidney appears normal. Cortical nephrograms are symmetric and normal in appearance bilaterally. No evidence for intra-abdominal free air or organized fluid collection. No retrocrural, intraabdominal, or retroperitoneal lymphadenopathy identified. No aortic aneurysmal dilation or dissection identified. PELVIS: No evidence for free air or organized pelvic fluid collection. No significant pelvic adenopathy detected. Visualized small and large bowel loops appear unremarkable. Terminal ileum appears normal. The appendix appears normal. Urinary bladder wall thickening and surrounding inflammatory fat stranding. Prostate gland transverse dimension measures up to 7.3 cm. Visible osseous structures are intact. IMPRESSION: 1. Cystitis. 2. Enlarged prostate gland. 3. Hepatic steatosis. DICTATED BY: NAVDEEP DUVALL MD DATE: 08/23/24 112 ELECTRONICALLY SIGNED BY: NAVDEEP DUVALL MD DATE: 08/23/24 1132 PATIENT: PEPE BARRETT MR#: [id number] : 1960 SEX: M AGE: 64 LOCATION: [facility] ORDER [id number] STATUS: REG REPORT#: [id number] SERVICE 1045 REASON: SOB/COUGH ORDERING PHYSICIAN: BUBBA HUNTER NP PROCEDURE: CXR1VW - CHEST 1VW PORTABLE CHEST RADIOGRAPH INDICATION: SOB/COUGH COMPARISON: None FINDINGS: Heart size is normal. The pulmonary vascularity and bernard appear normal. No abnormal pulmonary parenchymal opacity or consolidation identified. No significant pleural effusion noted. No pneumothorax detected. IMPRESSION: No radiographic evidence for any acute cardiopulmonary process. DICTATED BY: NAVDEEP DUVALL MD DATE: 08/23/24 130 ELECTRONICALLY SIGNED BY: NAVDEEP DUVALL MD DATE: 08/23/24 1309 ASSESSMENT: Septic shock, resolved Hypotension requiring vasopressor (Levophed) resolved, POA Sepsis secondary to complicated UTI POA Complicated UTI with cystitis Prostatomegaly Hypertension Obesity BMI 37 point PLAN: - patient to be admitted to be admitted to medical-surgical unit with telemetry -in reference to complicated UTI. Patient will be started on IV Zosyn. We will also perform bladder scan q.6 hours to check for postvoid residuals. We will request consultation with Urology. Follow up on urine culture - In reference to prostatomegaly. patient to be continued on Flomax. Patient to be given gentle hydration with normal saline -further orders per hospitalization course. ATTESTATION BY PHYSICIAN I have seen and examined the patient. I reviewed the documentation, medical decision making, and treatment plan as noted by the resident provider above. I agree with the findings and plan of care. Phoenix Guillory MD, NEHA MD Aug 25, 2024 15:12
[2024-08-26 03:54] VITALS: BP 127/76; PULSE 70; RESP 16; TEMP 98.8
[2024-08-26 05:23] LABS: BASOPHILS # (AUTO) 0.03 K/uL (0.00-0.20); BASOPHILS % (AUTO) 0.3 % (0.0-5.0); EOSINOPHILS # (AUTO) 0.08 K/uL (0.00-0.70); EOSINOPHILS % (AUTO) 0.7 % (0.0-8.0); HEMATOCRIT 34.4 % (42-54); IMMATURE GRANULOCYTE ABSOLUTE 0.11 K/uL (0-1); LYMPHOCYTES % (AUTO) 8.6 % (21.0-51.0); MEAN CORPUSCULAR HEMOGLOBIN 32.6 pg (27.0-33.0); MEAN CORPUSCULAR VOLUME 90.5 fL (79-99); MONOCYTES # (AUTO) 0.8 K/uL (0.1-1.0); MONOCYTES % (AUTO) 6.6 % (3.0-13.0); NEUTROPHILS # (AUTO) 9.9 K/uL (1.8-7.7); NEUTROPHILS % (AUTO) 82.9 % (40.0-77.0); PLATELET COUNT (AUTO) 149 K/uL (130-400); RED CELL DISTRIBUTION WIDTH 12.8 % (11.0-15.5); WHITE BLOOD COUNT (AUTO) 11.9 K/uL (4.8-10.8)
[2024-08-26 05:51] LABS: ALBUMIN 2.1 g/dL (3.5-5.0); BILIRUBIN,TOTAL 0.4 mg/dL (0.2-1.0); CREATININE 0.9 mg/dL (0.5-1.3); TOTAL PROTEIN, SERUM 6.1 g/dL (6.0-8.3)
[2024-08-26 05:57] LABS: POTASSIUM 2.8 mmol/L (3.5-5.1)
--- NOTE | 2024-08-26 06:50 | NUR ---
[facility] PENDING CALL BACK FOR k+2.8
--- NOTE | 2024-08-26 07:02 | NUR ---
SECOND CALL TO PENDING CALL BACK REGARDING k+2.8
--- NOTE | 2024-08-26 07:27 | NUR ---
KATIUSKA LINARES [employer] CALLED BACK WILL ORDER k+ PROTOCOL
[2024-08-26 08:00] VITALS: BP 136/76; PULSE 75; RESP 18; TEMP 98.1; O2SAT 96
[2024-08-26] MEDS ORDERED: MAGNESIUM 2GM PREMIX 50ML 50 ML IV PRN (08:00)
[2024-08-26] MEDS ORDERED: PoTASSium chloRIDE 20MEQ/100ML 100 ML IV PRN (08:00)
[2024-08-26] MEDS: PoTASSium chloRIDE 20MEQ ER 20 MEQ ERTAB PO PRN (08:06)
[2024-08-26 12:00] VITALS: BP 134/75; PULSE 80; RESP 20; TEMP 99
--- NOTE | 2024-08-26 14:23 | DS ---
Discharge Summary Hospital Course Summary: This is a 64-year-old male with past medical history of hypertension who presented to the hospital secondary to fever, increased urinary injury urgency. Patient yesterday was noted to have fevers at home. He was also complaining of pain in the left and right lower quadrant. He felt nauseated without any episodes of vomiting at home. Patient was having increased urinary urgency but felt he was unable to urinate. He went to [facility] and was given prescription for antibiotics which he took yesterday. noted that patient was feeling generally weak and was unable to work. Patient denies any dysuria, hematuria but feels he is unable to void. He states his appetite has not changed and he has been drinking and eating food at home. He denies any chest pain, abdominal pain, shortness of breath, nausea, vomiting, changes in his bowel movement. Denied any constipation, diarrhea, melena, hematochezia, hematemesis. The ED were notable for white count of 29.5, hemoglobin was 15.2, platelet count was 154 K, sodium was 136, potassium was 4.1, creatinine was 1.3, blood glucose was one [address] abdomen pelvis which showed cystitis, prostatomegaly and hepatic steatosis 08/24/2024: Patient assessed at bedside. Patient is afebrile, alert and oriented x4. He is no longer on Levophed and is hemodynamically stable with BP of 111/71. Per nurse, the patient is still voiding in small amounts and has inc reased urgency. He is continued on Tamsulosin. Currently on meropenem with WBC still elevated at 29.6, procalcitonin increased to 10.47 from 2.37, CRP increased to 250.90 from 170.70. BUN 17, Cr 1.5. Currently on LR. 08/25/2024: Patient assessed at bedside. Patient continues to saturate well on room air and is no acute distress. He has however been febrile with a T-max of 102.2. WBC has improved from 29.6 to 22.8. Pro-calcitonin improved from 10.47 to 7.05. Cr improved from 1.5 to 1.2. Continued on NS 100ml/hr. Patient is able to void on his own and per urology no Hanley is needed if post-residual volume is less than 100ml. Patient started of Finasteride 5mg and continued on Flomax 0.4mg. Will continue patient on doxy and meropenem. Urine positive for E.Coli. Magnesium and potassium protocols started. Will continue to monitor electrolytes and trend temperature and WBC's. 08/26/2024: Patient assessed at bedside. Patient continues to saturate well on room air and is no acute distress. Leukocytosis resolved from 11.9 to 9.8. Magnesium and potassium levels corrected. Patient will be continued on Bactrim for 10 days. Continue Flomax and Finasteride for enlarged prostate. Patient advised to follow up with PCP. Second Baller(s): Urology. Procedure(s): PATIENT: PEPE BARRETT MR#: [id number] : 1960 SEX: M AGE: 64 LOCATION: ED ORDER 1047 STATUS: REG ER REPORT#: [id number] SERVICE 104 REASON: SOB/COUGH ORDERING PHYSICIAN: BUBBA HUNTER NP PROCEDURE: CXR1VW - CHEST 1VW PORTABLE CHEST RADIOGRAPH INDICATION: SOB/COUGH COMPARISON: None FINDINGS: Heart size is normal. The pulmonary vascularity and bernard appear normal. No abnormal pulmonary parenchymal opacity or consolidation identified. No significant pleural effusion noted. No pneumothorax detected. IMPRESSION: No radiographic evidence for any acute cardiopulmonary process. DICTATED BY: NAVDEEP DUVALL MD DATE: 08/23/24 1307 ELECTRONICALLY SIGNED BY: NAVDEEP DUVALL MD DATE: 08/23/24 1309 PATIENT: PEPE BARRETT MR#: [id number] : 1960 SEX: M AGE: 64 LOCATION: [facility] ORDER 1055 STATUS: REG ER REPORT#: [id number] SERVICE 1054 REASON: SUPRAPUBIC AND LEFT QUADRANT PAIN TENDERNESS 29.5 WBCS ORDERING PHYSICIAN: BUBBA HUNTER NP PROCEDURE: ABD PEL W - CT ABDOMEN/PELVIS W/CONTRAST CT ABDOMEN WITH CONTRAST. CT PELVIS WITH CONTRAST INDICATION: Suprapubic and left abdominal tenderness; urinary retention. TECHNIQUE: Routine transaxial images using 5 mm slice thickness were obtained after the intravenous infusion of 75 mL of Omnipaque 350 without adverse effects. Oral contrast was not administered. Rectal contrast was not administered. Coronal and sagittal reformatted images acquired for interpretation. CT was performed with one or more of the following dose reduction techniques: Automated exposure control, adjustment of the mA and/or kV according to patient size, or use of iterative reconstruction technique. COMPARISON: None FINDINGS: ABDOMEN: Heart size is normal. Visible lung bases are clear. The liver is normal in size and smooth in contour without lesions or biliary duct dilation. Diffuse low attenuation of the liver parenchyma suggests fatty change. The spleen is normal in size without lesions. The gallbladder appears normal. The pancreas appears normal without pancreatic duct dilation. The adrenal glands appear normal. 1 cm simple right renal cyst. Left kidney appears normal. Cortical nephrograms are symmetric and normal in appearance bilaterally. No evidence for intra-abdominal free air or organized fluid collection. No retrocrural, intraabdominal, or retroperitoneal lymphadenopathy identified. No aortic aneurysmal dilation or dissection identified. PELVIS: No evidence for free air or organized pelvic fluid collection. No significant pelvic adenopathy detected. Visualized small and large bowel loops appear unremarkable. Terminal ileum appears normal. The appendix appears normal. Urinary bladder wall thickening and surrounding inflammatory fat stranding. Prostate gland transverse dimension measures up to 7.3 cm. Visible osseous structures are intact. IMPRESSION: 1. Cystitis. 2. Enlarged prostate gland. 3. Hepatic steatosis. DICTATED BY: NAVDEEP DUVALL MD DATE: 08/23/24 1128 ELECTRONICALLY SIGNED BY: NAVDEEP DUVALL MD DATE: 08/23/24 1132 Assessment/Plan: ASSESSMENT: Septic shock, resolved Hypotension requiring vasopressor (Levophed) resolved, POA Sepsis secondary to complicated UTI, POA Complicated UTI with cystitis Prostatomegaly Hypertension Obesity BMI 37 Hypomagnesemia Hypokalemia Discharge Instructions: Follow up with PCP in 3-5 days. Home Medications: Reported Medications Enalapril Maleate (Enalapril Maleate) 10 Mg Tablet, 1 TAB PO DAILY for 30 Days, #30 TAB 0 Refills 08/23/24 New Medications: Finasteride (Finasteride) 5 Mg Tablet 1 TAB PO DAILY for 30 Days, #30 TAB 0 Refills Tamsulosin HCl (Flomax) 0.4 Mg Cap.er.24h 0.4 MG PO DAILY for 30 Days, #30 CAPSULE. Continued Medications: Enalapril Maleate (Enalapril Maleate) 10 Mg Tablet 1 TAB PO DAILY for 30 Days, #30 TAB 0 Refills Time spent arranging discharge: 1-30 minutes ATTESTATION BY PHYSICIAN I have seen and examined the patient. I reviewed the documentation, medical decision making, and treatment plan as noted by the resident provider above. I agree with the findings and plan of care. Phoenix Guillory MD, NEHA MD Aug 26, 2024 14:23
[2024-08-26] MEDS: PoTASSium chl 10% ELIXIR 20MEQ 20 MEQ/15 ML UDCUP PO PRN (15:05)
--- NOTE | 2024-08-26 15:13 | PN ---
INFECTIOUS DISEASE PROGRESS NOTE Date of Service: Aug 26, 2024 SUBJECTIVE: This is a 64-year-old male patient with past medical history of hypertension and obesity who presented to the emergency room with chief complaint of urgency and difficulty urinating. A urine culture collected on admission came back positive for ESBL E coli and patient has been started on meropenem 1 g IV every 8 hours. Today patient was examined in room 320. Patient is awake, alert and oriented x3. Patient had low-grade fever of 99.7 Throughout the night but no fever this morning, temperature is 98.1. The WBC trended down to 11.9 this morning from 22.8 on admission. Patient has been on meropenem. From Infectious Disease standpoint patient can be discharged on Bactrim DS p.o. b.i.d. x10 days when ready to discharge. PHYSICAL EXAM EYES: Anicteric. Pupils equal and reactive. HENT: No oral thrush seen, moist Oral mucosa. NECK: Supple, no JVD or thyromegaly. LUNGS: Good air entry. No rales, no rhonchi. CARDIOVASCULAR: S1, S2 regular. No murmur heard. ABDOMEN: Soft, non tender, bowel sounds present, no organomegaly. CENTRAL NERVOUS SYSTEM: Awake, alert, oriented x 3. SKIN: No rashes, no swelling. LYMPHATICS: No peripheral lymphadenopathy. MUSCULOSKELETAL: No joint swelling, erythema or tenderness. EXTREMITIES: No cyanosis or clubbing. BACK: No deformity, no pressure ulcer. GENITOURINARY: No hematuria. Urgency resolving. Vital Sign (Last 12 Hours) 08/26/24 08/26/24 03:54 08:00 Temp 98.8 98.1 Pulse 70 75 Resp 16 18 B/P (MAP) 127/76 136/76 Pulse Ox 97 100 O2 Delivery Room Air Room Air Intake & Output (last 24hrs) 08/25/24 08/25/24 08/26/24 14:59 22:59 06:59 Intake Total 400 ml Balance 400 ml LABS: Laboratory: Test 08/26/24 04:47 08/25/24 04:15 Range/Units White Blood Count 11.9 H 4.8-10.8 K/uL Red Blood Count 3.80 L 4.50-6.20 MIL/uL Hemoglobin 12.4 L 14.0-18.0 g/dL Hematocrit 34.4 L 42-54 % Mean Corpuscular Volume 90.5 79-99 fL Mean Corpuscular Hemoglobin 32.6 27.0-33.0 pg Mean Corpuscular Hemoglobin Concent 36.0 32.0-36.0 g/dL Red Cell Distribution Width 12.8 11.0-15.5 % Platelet Count 149 130-400 K/uL Mean Platelet Volume 11.2 H 7.5-10.5 fL Immature Granulocyte % (Auto) 0.9 0-1 % Neutrophils (%) (Auto) 82.9 H 40.0-77.0 % Lymphocytes (%) (Auto) 8.6 L 21.0-51.0 % Monocytes (%) (Auto) 6.6 3.0-13.0 % Eosinophils (%) (Auto) 0.7 0.0-8.0 % Basophils (%) (Auto) 0.3 0.0-5.0 % Neutrophils # (Auto) 9.9 H 1.8-7.7 K/uL Lymphocytes # (Auto) 1.0 1.0-4.8 K/uL Monocytes # (Auto) 0.8 0.1-1.0 K/uL Eosinophils # (Auto) 0.08 0.00-0.70 K/uL Basophils # (Auto) 0.03 0.00-0.20 K/uL Absolute Immature Granulocyte (auto 0.11 0-1 K/uL Nucleated Red Blood Cells 0.0 0.0-0.19 % Sodium Level 137 136-145 mmol/L Potassium Level 2.8 *L 3.5-5.1 mmol/L Chloride Level 103 101-111 mmol/L Carbon Dioxide Level 26 21-32 mmol/L Blood Urea Nitrogen 11 7-18 mg/dL Creatinine 0.9 0.5-1.3 mg/dL Glomerular Filtration Rate Calc 95 >90 mL/min Random Glucose 104 70-105 mg/dL Total Calcium 8.0 L 8.5-10.1 mg/dL Total Bilirubin 0.4 0.2-1.0 mg/dL Aspartate Amino Transf (AST/SGOT) 24 10-37 U/L Alanine Aminotransferase (ALT/SGPT) 21 12-78 U/L Alkaline Phosphatase 68 50-136 U/L Total Protein 6.1 6.0-8.3 g/dL Albumin 2.1 L 3.5-5.0 g/dL Magnesium Level 1.50 L 1.80-2.40 mg/dL Procalcitonin 7.05 H 0.05-0.5 ng/mL ASSESSMENT: Urinary tract infection with ESBL, E coli. Infection with multidrug resistant organism. Sepsis. Leukocytosis. Urinary retention, POA. Hypertension. PLAN: From Infectious Disease standpoint patient can be discharged on Bactrim DS p.o. b.i.d. x 10 days when ready to discharge. This case was reviewed and discussed with my supervising physician and the above assessment and plan was formulated and agreed upon. ATTESTATION BY PHYSICIAN I have seen and examined the patient. I reviewed the documentation, medical decision making, and treatment plan as noted by the mid-level provider above. I agree with the findings and plan of care. AHMET MENDEZ MD, [facility] Aug 26, 2024 15:12
[2024-08-26 15:52] LABS: BASOPHILS # (AUTO) 0.03 K/uL (0.00-0.20); BASOPHILS % (AUTO) 0.3 % (0.0-5.0); HEMATOCRIT 35.8 % (42-54); IMMATURE GRANULOCYTE ABSOLUTE 0.07 K/uL (0-1); LYMPHOCYTES # (AUTO) 1.3 K/uL (1.0-4.8); LYMPHOCYTES % (AUTO) 12.7 % (21.0-51.0); MEAN CORPUSCULAR HEMOGLOBIN 32.7 pg (27.0-33.0); MEAN CORPUSCULAR HGB CONC 36.3 g/dL (32.0-36.0); MEAN CORPUSCULAR VOLUME 89.9 fL (79-99); MONOCYTES # (AUTO) 1.1 K/uL (0.1-1.0); MONOCYTES % (AUTO) 11.1 % (3.0-13.0); NEUTROPHILS # (AUTO) 7.3 K/uL (1.8-7.7); NEUTROPHILS % (AUTO) 74.2 % (40.0-77.0); PLATELET COUNT (AUTO) 169 K/uL (130-400); RED BLOOD CELL COUNT(AUTO) 3.98 MIL/uL (4.50-6.20); RED CELL DISTRIBUTION WIDTH 12.7 % (11.0-15.5); WHITE BLOOD COUNT (AUTO) 9.8 K/uL (4.8-10.8)
[2024-08-26 16:00] VITALS: BP 136/74; PULSE 79; RESP 18; TEMP 99.5
[2024-08-26 17:24] LABS: CREATININE 0.9 mg/dL (0.5-1.3); POTASSIUM 3.5 mmol/L (3.5-5.1)
[2024-08-26] MEDS ORDERED: FINA5TAB41 PO (18:08)
[2024-08-26] MEDS ORDERED: TAMS-1 PO (18:08)
[2024-08-26] MEDS: MAGNESIUM OXIDE 400 MG TABLET PO ONE (18:28)
== END 2024-08-26 18:30 | disposition home or self-care (01) | DRG 871 ==
LOC: EDH 09:48 → EDHIP 13:02 → 3CH 14:35 → 2BH 20:52 → 3CH 08-24 14:15
PROVIDERS: ADMIT Internal Medicine; ATTEND Internal Medicine
DX: A41.9 Sepsis, unspecified organism (principal); N17.0 Acute kidney failure with tubular necrosis; R65.21 Severe sepsis with septic shock; N30.01 Acute cystitis with hematuria; Z16.24 Resistance to multiple antibiotics; N40.0 Benign prostatic hyperplasia without lower urinary tract symptoms; N18.9 Chronic kidney disease, unspecified; I12.9 Hypertensive chronic kidney disease with stage 1 through stage 4 chronic kidney disease, or unspecified chronic kidney disease; Z68.37 Body mass index [BMI] 37.0-37.9, adult; E66.9 Obesity, unspecified; E11.65 Type 2 diabetes mellitus with hyperglycemia; E11.22 Type 2 diabetes mellitus with diabetic chronic kidney disease; B96.20 Unspecified Escherichia coli [E. coli] as the cause of diseases classified elsewhere; E83.42 Hypomagnesemia; E87.6 Hypokalemia; E87.8 Other disorders of electrolyte and fluid balance, not elsewhere classified; K76.0 Fatty (change of) liver, not elsewhere classified; Z79.899 Other long term (current) drug therapy
CPT/HCPCS: 36415; 71045; 74177; 80048; 80053; 81001; 82948; 83036; 83605; 83735; 84145; 84153; 84154; 84443; 85025; 86140; 87040; 87086; 87186; 87426; 96365; 96366; 96375; 99285; G0378; J0696; J1650; J1885; J2185; J2405; J2543; J3490; J7030; Q9967